=== PATIENT | male | born 1940 | race Caucasian/White ===

== ENCOUNTER 2016-12-06 14:15 | Inpatient (IN) | payer MEDICARE, BC ==
[2016-12-06] MEDS ORDERED: IBUPROFEN IV 600 MG in SODIUM CHLORIDE 0.9% 250 ML IV STA (14:21)
[2016-12-06] MEDS ORDERED: ACETAMINOPHEN TAB 500 MG TAB PO STA (14:21)
--- NOTE | 2016-12-06 14:29 | ED ---
General Adult HPI - General Source: RN notes reviewed <Daniel Jolley - Last Filed: 12/06/16 19:43> <Daniel Hanson - Last Filed: 12/06/16 21:06> - General Stated complaint: Stemi Time Seen by Provider: 12/06/16 14:15 - History of Present Illness Initial comments: This is a 76-year-old male who presents to the emergency department with the initial complaint of nausea vomiting and diarrhea and generalized weakness. EMS was called to scene when they did an EKG they noticed some ST segment elevation in the inferior leads and thought the patient might be having a heart attack in the patient is not expressing any chest pain. Patient states occasionally feels a little bit short of breath. Patient denies any episodes diaphoresis. Patient is unaware that he has a fever. Patient denies any headache patient denies numbness weakness. Patient states she has quite a bit of abdominal cramping. Patient denies any dysuria hematuria or urinary frequency. Patient states she has no other medical problems. Patient denies any recent injury or trauma. Patient's only complaint now is pain to get weaker and weaker over the last few days because of all the vomiting diarrhea. And also complains of abdominal cramping (Daniel Jolley) - Related Data Home Medications Medication Instructions Recorded Confirmed Cholecalciferol [Vitamin D3] 2,000 unit PO DAILY 01/27/16 12/06/16 [place] 1 tab PO DIRECTED 01/27/16 12/06/16 Lecithin, Soy [Lecithin] 400 mg PO DAILY 01/27/16 12/06/16 Allergies Allergy/AdvReac Type Severity Reaction Status Date / Time No Known Allergies Allergy Verified 12/06/16 14:26 Review of Systems ROS Other: All systems not noted in ROS Statement are negative. <Daniel Jolley - Last Filed: 12/06/16 19:43> ROS Other: All systems not noted in ROS Statement are negative. <Daniel Hanson - Last Filed: 12/06/16 21:06> ROS Statement: Those systems with pertinent positive or pertinent negative responses have been documented in the HPI. Past Medical History Past Medical History: Cancer, Hyperlipidemia Additional Past Medical History / Comment(s): "low BP", environmental allergies , hx skin cancer History of Any Multi-Drug Resistant Organisms: None Reported Past Surgical History: Adenoidectomy, Tonsillectomy Past Anesthesia/Blood Transfusion Reactions: Motion Sickness Past Psychological History: No Psychological Hx Reported Smoking Status: Former smoker Past Alcohol Use History: None Reported Additional Past Alcohol Use History / Comment(s): quit smoking , used pipe or cigars -"some day" smoker Past Drug Use History: None Reported - Past Family History Mother Family Medical History: Cancer Brother(s) Family Medical History: Cancer <Daniel Jolley - Last Filed: 12/06/16 19:43> General Exam <Daniel Jolley - Last Filed: 12/06/16 19:43> General appearance: alert, in no apparent distress Head exam: Present: atraumatic, normocephalic, normal inspection Eye exam: Present: normal appearance, PERRL, EOMI. Absent: scleral icterus, conjunctival injection, periorbital swelling ENT exam: Present: normal exam, mucous membranes moist Neck exam: Present: normal inspection. Absent: tenderness, meningismus, lymphadenopathy Respiratory exam: Present: normal lung sounds bilaterally. Absent: respiratory distress, wheezes, rales, rhonchi, stridor Cardiovascular Exam: Present: regular rate, normal rhythm, normal heart sounds. Absent: systolic murmur, diastolic murmur, rubs, gallop, clicks GI/Abdominal exam: Present: soft, normal bowel sounds. Absent: distended, tenderness, guarding, rebound, rigid Extremities exam: Present: normal inspection, full ROM, normal capillary refill. Absent: tenderness, pedal edema, joint swelling, calf tenderness Back exam: Present: normal inspection Neurological exam: Present: alert, oriented X3, CN II-XII intact Psychiatric exam: Present: normal affect, normal mood Skin exam: Present: warm, dry, intact, normal color. Absent: rash <Daniel Hanson - Last Filed: 12/06/16 21:06> - General Exam Comments Initial Comments: GENERAL: Patient is well-developed and well-nourished. Patient is nontoxic and well- hydrated and is in mild distress. ENT: Neck is soft and supple. No significant lymphadenopathy is noted. Oropharynx is clear. Moist mucous membranes. Neck has full range of motion without eliciting any pain. EYES: The sclera were anicteric and conjunctiva were pink and moist. Extraocular movements were intact and pupils were equal round and reactive to light. Eyelids were unremarkable. PULMONARY: Unlabored respirations. Good breath sounds bilaterally. No audible rales rhonchi or wheezing was noted. CARDIOVASCULAR: There is a regular rate and rhythm without any murmurs gallops or rubs. ABDOMEN: Soft and nontender with normal bowel sounds. No palpable organomegaly was noted. There is no palpable pulsatile mass. SKIN: Skin is clear with no lesions or rashes and otherwise unremarkable. NEUROLOGIC: Patient is alert and oriented x3. Cranial nerves II through XII are grossly intact. Motor and sensory are also intact. Normal speech, volume and content. Symmetrical smile. MUSCULOSKELETAL: Normal extremities with adequate strength and full range of motion. No lower extremity swelling or edema. No calf tenderness. LYMPHATICS: No significant lymphadenopathy is noted PSYCHIATRIC: Normal psychiatric evaluation. (Daniel Jolley) Course <Daniel Jolley - Last Filed: 12/06/16 19:43> <Daniel Hanson - Last Filed: 12/06/16 21:06> Vital Signs 12/06/16 12/06/16 12/06/16 14:22 14:33 15:20 Temperature 101.5 F H Pulse Rate 124 H 108 H 99 Respiratory 26 H 18 17 Rate Blood Pressure 93/67 97/52 95/58 O2 Sat by Pulse 92 L 98 99 Oximetry 12/06/16 12/06/16 12/06/16 16:21 17:10 19:00 Temperature 98.2 F 98.4 F Pulse Rate 98 68 71 Respiratory 18 17 17 Rate Blood Pressure 87/57 85/53 83/50 O2 Sat by Pulse 95 95 96 Oximetry 12/06/16 12/06/16 19:21 21:01 Temperature Pulse Rate 72 68 Respiratory 16 16 Rate Blood Pressure 82/50 85/60 O2 Sat by Pulse 96 96 Oximetry - Reevaluation(s) Reevaluation #1: 12/06/16 21:05 Patient is awake alert and mentating appropriately, not tachycardic, patient's blood pressure is running 90/60 lactic acid has improved from 7-0 (Daniel Hanson) Medical Decision Making - Lab Data Result diagrams: 12/06/16 14:20 12/06/16 14:20 <Daniel Jolley - Last Filed: 12/06/16 19:43> - Lab Data Result diagrams: 12/06/16 14:20 12/06/16 14:20 - Radiology Data Radiology results: report reviewed, image reviewed <Daniel Hanson - Last Filed: 12/06/16 21:06> - Medical Decision Making EKG shows sinus tachycardia 129 bpm AL interval 176 QRS 138 Q-T intervals 316 QTC is 462 patient's EKG shows a left bundle branch block which was new compared to an old EKG done 4 years ago. There is some ST segment elevation in the inferior leads this is why called Dr. Lemon and he looked at the EKG and wants to get a stat troponin which is been ordered already. Troponin was normal. Dr. Hanson will be taking over care of this patient at 7:30 (Daniel Jolley) 76 male ER for evaluation of nausea vomiting and diarrhea, patient is found to have acute cholecystitis and will be treated with antibiotics and fluid resuscitation, continued pain control and antiemetics, patient is to be admitted for further resuscitation as well as surgical evaluation (Daniel Hanson) - Lab Data Lab Results 12/06/16 12/06/16 12/06/16 Range/Units 14:20 14:20 14:20 WBC 13.0 H (3.8-10.6) k/uL RBC 5.41 (4.30-5.90) m/uL Hgb 16.5 (13.0-17.5) gm/dL Hct 47.4 (39.0-53.0) % MCV 87.7 (80.0-100.0) fL MCH 30.4 (25.0-35.0) pg MCHC 34.7 (31.0-37.0) g/dL RDW 13.8 (11.5-15.5) % Plt Count 187 (150-450) k/uL Neutrophils % 81 % Lymphocytes % 16 % Monocytes % 2 % Eosinophils % 1 % Basophils % 0 % Neutrophils # 10.5 H (1.3-7.7) k/uL Lymphocytes # 2.0 (1.0-4.8) k/uL Monocytes # 0.3 (0-1.0) k/uL Eosinophils # 0.1 (0-0.7) k/uL Basophils # 0.1 (0-0.2) k/uL PT (9.0-12.0) sec INR (<1.1) APTT (22.0-30.0) sec Sodium (137-145) mmol/L Potassium (3.5-5.1) mmol/L Chloride (98-107) mmol/L Carbon Dioxide (22-30) mmol/L Anion Gap mmol/L BUN (9-20) mg/dL Creatinine (0.66-1.25) mg/dL Est GFR (MDRD) Af Amer (>60 ml/min/1.73 sqM) Est GFR (MDRD) Non-Af (>60 ml/min/1.73 sqM) Glucose (74-99) mg/dL Plasma Lactic Acid Jose 7.2 H* (0.7-2.0) mmol/L Calcium (8.4-10.2) mg/dL Total Bilirubin (0.2-1.3) mg/dL AST (17-59) U/L ALT (21-72) U/L Alkaline Phosphatase (38-126) U/L Total Creatine Kinase 98 (55-170) U/L CK-MB (CK-2) 0.7 (0.0-2.4) ng/mL CK-MB (CK-2) Rel Index 0.7 Troponin I <0.012 (0.000-0.034) ng/mL Total Protein (6.3-8.2) g/dL Albumin (3.5-5.0) g/dL Cortisol ug/dL Urine Color Urine Appearance (Clear) Urine pH (5.0-8.0) Ur Specific [place] (1.001-1.035) Urine Protein (Negative) Urine Glucose (UA) (Negative) Urine Ketones (Negative) Urine Blood (Negative) Urine Nitrate (Negative) Urine Bilirubin (Negative) Urine Urobilinogen (<2.0) mg/dL Ur Leukocyte Esterase (Negative) Urine RBC (0-5) /hpf Urine WBC (0-5) /hpf Urine Bacteria (None) /hpf Hyaline Casts (0-2) /lpf Urine Mucus (None) /hpf Influenza Type A RNA (Not Detectd) Influenza Type B (PCR) (Not Detectd) 12/06/16 12/06/16 12/06/16 Range/Units 14:20 14:20 14:51 WBC (3.8-10.6) k/uL RBC (4.30-5.90) m/uL Hgb (13.0-17.5) gm/dL Hct (39.0-53.0) % MCV (80.0-100.0) fL MCH (25.0-35.0) pg MCHC (31.0-37.0) g/dL RDW (11.5-15.5) % Plt Count (150-450) k/uL Neutrophils % % Lymphocytes % % Monocytes % % Eosinophils % % Basophils % % Neutrophils # (1.3-7.7) k/uL Lymphocytes # (1.0-4.8) k/uL Monocytes # (0-1.0) k/uL Eosinophils # (0-0.7) k/uL Basophils # (0-0.2) k/uL PT 11.4 (9.0-12.0) sec INR 1.1 (<1.1) APTT 24.3 (22.0-30.0) sec Sodium 140 (137-145) mmol/L Potassium 5.1 (3.5-5.1) mmol/L Chloride 101 (98-107) mmol/L Carbon Dioxide 18 L (22-30) mmol/L Anion Gap 21 mmol/L BUN 18 (9-20) mg/dL Creatinine 1.10 (0.66-1.25) mg/dL Est GFR (MDRD) Af Amer >60 (>60 ml/min/1.73 sqM) Est GFR (MDRD) Non-Af >60 (>60 ml/min/1.73 sqM) Glucose 163 H (74-99) mg/dL Plasma Lactic Acid Jose (0.7-2.0) mmol/L Calcium 9.6 (8.4-10.2) mg/dL Total Bilirubin 2.4 H (0.2-1.3) mg/dL AST 41 (17-59) U/L ALT 30 (21-72) U/L Alkaline Phosphatase 78 (38-126) U/L Total Creatine Kinase (55-170) U/L CK-MB (CK-2) (0.0-2.4) ng/mL CK-MB (CK-2) Rel Index Troponin I (0.000-0.034) ng/mL Total Protein 7.4 (6.3-8.2) g/dL Albumin 4.2 (3.5-5.0) g/dL Cortisol 39 ug/dL Urine Color Urine Appearance (Clear) Urine pH (5.0-8.0) Ur Specific [place] (1.001-1.035) Urine Protein (Negative) Urine Glucose (UA) (Negative) Urine Ketones (Negative) Urine Blood (Negative) Urine Nitrate (Negative) Urine Bilirubin (Negative) Urine Urobilinogen (<2.0) mg/dL Ur Leukocyte Esterase (Negative) Urine RBC (0-5) /hpf Urine WBC (0-5) /hpf Urine Bacteria (None) /hpf Hyaline Casts (0-2) /lpf Urine Mucus (None) /hpf Influenza Type A RNA Not Detected (Not Detectd) Influenza Type B (PCR) Not Detected (Not Detectd) 12/06/16 12/06/16 12/06/16 Range/Units 16:00 17:41 17:57 WBC (3.8-10.6) k/uL RBC (4.30-5.90) m/uL Hgb (13.0-17.5) gm/dL Hct (39.0-53.0) % MCV (80.0-100.0) fL MCH (25.0-35.0) pg MCHC (31.0-37.0) g/dL RDW (11.5-15.5) % Plt Count (150-450) k/uL Neutrophils % % Lymphocytes % % Monocytes % % Eosinophils % % Basophils % % Neutrophils # (1.3-7.7) k/uL Lymphocytes # (1.0-4.8) k/uL Monocytes # (0-1.0) k/uL Eosinophils # (0-0.7) k/uL Basophils # (0-0.2) k/uL PT (9.0-12.0) sec INR (<1.1) APTT (22.0-30.0) sec Sodium (137-145) mmol/L Potassium (3.5-5.1) mmol/L Chloride (98-107) mmol/L Carbon Dioxide (22-30) mmol/L Anion Gap mmol/L BUN (9-20) mg/dL Creatinine (0.66-1.25) mg/dL Est GFR (MDRD) Af Amer (>60 ml/min/1.73 sqM) Est GFR (MDRD) Non-Af (>60 ml/min/1.73 sqM) Glucose (74-99) mg/dL Plasma Lactic Acid Jose 1.2 1.0 (0.7-2.0) mmol/L Calcium (8.4-10.2) mg/dL Total Bilirubin (0.2-1.3) mg/dL AST (17-59) U/L ALT (21-72) U/L Alkaline Phosphatase (38-126) U/L Total Creatine Kinase (55-170) U/L CK-MB (CK-2) (0.0-2.4) ng/mL CK-MB (CK-2) Rel Index Troponin I (0.000-0.034) ng/mL Total Protein (6.3-8.2) g/dL Albumin (3.5-5.0) g/dL Cortisol ug/dL Urine Color [place] Urine Appearance Clear (Clear) Urine pH 6.0 (5.0-8.0) Ur Specific [place] 1.023 (1.001-1.035) Urine Protein 1+ H (Negative) Urine Glucose (UA) Negative (Negative) Urine Ketones Trace H (Negative) Urine Blood Small H (Negative) Urine Nitrate Negative (Negative) Urine Bilirubin Negative (Negative) Urine Urobilinogen 2.0 (<2.0) mg/dL Ur Leukocyte Esterase Negative (Negative) Urine RBC 42 H (0-5) /hpf Urine WBC 3 (0-5) /hpf Urine Bacteria Rare H (None) /hpf Hyaline Casts 9 H (0-2) /lpf Urine Mucus Moderate H (None) /hpf Influenza Type A RNA (Not Detectd) Influenza Type B (PCR) (Not Detectd) Critical Care Time Critical Care Time: Yes Total Critical Care Time: 31 <Daniel Hnason - Last Filed: 12/06/16 21:06> Disposition <Daniel Jolley - Last Filed: 12/06/16 19:43> <Daniel Hanson - Last Filed: 12/06/16 21:06> Clinical Impression: Nausea & vomiting, Diarrhea, Acute cholecystitis, Sepsis Disposition: ADMITTED IP TO THIS HOSP Condition: Fair Referrals: Margarito King MD [Primary Care Provider] - 1-2 days
[2016-12-06] MEDS: SODIUM CHLORIDE 0.9% 500 ML IV SCH ×2 (14:32→16:25)
[2016-12-06 14:43] LABS: Basophils # (A) 0.1 k/uL (0-0.2); Basophils % (A) 0 %; CH 30.9; CHCM 35.5; Eosinophils # (A) 0.1 k/uL (0-0.7); Eosinophils % (A) 1 %; HCT 47.4 % (39.0-53.0); HDW 2.82; HGB 16.5 gm/dL (13.0-17.5); Luc # (Auto) 0.07; Luc % (Auto) 1; Lymphocytes % (A) 16 %; MCH 30.4 pg (25.0-35.0); MCHC 34.7 g/dL (31.0-37.0); MCV 87.7 fL (80.0-100.0); Monocytes # (A) 0.3 k/uL (0-1.0); Monocytes % (A) 2 %; Neutrophils # (A) 10.5 k/uL (1.3-7.7); Neutrophils % (A) 81 %; RBC 5.41 m/uL (4.30-5.90); RDW 13.8 % (11.5-15.5); WBC (Perox) 12.78
[2016-12-06 14:47] LABS: ALT 30 U/L (21-72); AST 41 U/L (17-59); Alkaline Phosphatase 78 U/L (38-126); Anion Gap 21 mmol/L; Blood Urea Nitrogen 18 mg/dL (9-20); Calcium 9.6 mg/dL (8.4-10.2); Carbon Dioxide 18 mmol/L (22-30); Chloride 101 mmol/L (98-107); Glucose 163 mg/dL (74-99); Non-African American GFR(MDRD) >60 (>60 ml/min/1.73 sqM); Potassium 5.1 mmol/L (3.5-5.1); Sodium 140 mmol/L (137-145); Total Bilirubin 2.4 mg/dL (0.2-1.3); Total Protein 7.4 g/dL (6.3-8.2)
--- NOTE | 2016-12-06 14:50 | XR ---
EXAMINATION TYPE: XR chest 1V portable DATE OF EXAM: 12/06/2016 2:45 PM HISTORY: Shortness of breath. COMPARISON: 07/25/10 TECHNIQUE: Single view of the chest is submitted. FINDINGS: Demonstrated are scattered senescent parenchymal change. There is no evidence for focal infiltrate. The heart is stable. Hilar and mediastinal structures are within normal limits. Degenerative changes are seen of the dorsal spine. IMPRESSION: 1. Chronic changes without evidence for acute pulmonary disease.
[2016-12-06 14:52] LABS: Creatine Kinase 98 U/L (55-170); INR 1.1 (<1.1); Partial Thromboplastin Time 24.3 sec (22.0-30.0); Prothrombin Time 11.4 sec (9.0-12.0)
[2016-12-06 15:06] LABS: Creatine Kinase MB 0.7 ng/mL (0.0-2.4); Troponin I <0.012 ng/mL (0.000-0.034)
[2016-12-06] MEDS: SODIUM CHLORIDE 0.9% 1,000 ML IV ONE ×2 (15:13→16:15)
[2016-12-06] MEDS ORDERED: SODIUM CHLORIDE 0.9% 2,000 ML IV ONE (16:14)
[2016-12-06] MEDS ORDERED: LEVOFLOXACIN 750MG-D5W PMX 750 MG in DEXTROSE/WATER 1 150ML.BAG IVPB STA (16:16)
[2016-12-06] MEDS ORDERED: ONDANSETRON 4 MG/2 ML VIAL IVP STA (16:37)
[2016-12-06] MEDS ORDERED: SODIUM CHLORIDE 0.9% 1,000 ML IV ONE (17:07)
[2016-12-06] MEDS ORDERED: SODIUM CHLORIDE 0.9% 1,000 ML IV STA ×2 (17:16→21:02)
[2016-12-06 17:17] LABS: Appearance,Urine Clear (Clear); Bacteria,Urine Rare /hpf; Bilirubin,Urine Negative (Negative); Glucose,Urine (UA) Negative (Negative); Ketones,Urine Trace (Negative); Leukocyte Esterase,Urine Negative (Negative); Mucus,Urine Moderate /hpf; Nitrite,Urine Negative (Negative); Particle Count 9634; Protein,Urine 1+ (Negative); RBC,Urine 42 /hpf (0-5); Specific Gravity,Urine 1.023 (1.001-1.035); UA Billing (MACRO vs. MICRO) MICRO; WBC,Urine 3 /hpf (0-5)
[2016-12-06] MEDS ORDERED: RX INFO: IV CONTRAST WAS GIVEN 1 EACH MISC MISCELLANE PRN (17:43)
--- NOTE | 2016-12-06 19:34 | CT ---
EXAMINATION TYPE: CT abdomen pelvis w con DATE OF EXAM: 12/06/2016 6:59 PM COMPARISON: NONE HISTORY: Upper Abdominal pain CT DLP: 1078.7 mGycm. Automated exposure control for dose reduction was used. TECHNIQUE: Helical acquisition of images was performed from the lung bases through the pelvis. CONTRAST: Performed without Oral Contrast and with IV Contrast, patient injected with 100 mL of Omnip aque 300. FINDINGS: LUNG BASES: No significant abnormality is appreciated. LIVER/GB: The gallbladder is distended and the interface of the gallbladder with the anterior pararen al space are ill-defined with edematous reticulation. These findings suggest the diagnosis of acute c holecystitis. There are no abnormal fluid or gas collections. There is no extrahepatic biliary tree d ilation. There is no intrahepatic biliary tree dilation. PANCREAS: No pancreatic ductal dilation. No significant focal abnormality is seen. SPLEEN: No significant abnormality is seen. ADRENALS: No significant abnormality is seen. KIDNEYS: No significant abnormality is seen. RETROPERITONEAL ADENOPATHY: None visualized REPRODUCTIVE ORGANS: No significant abnormality is seen URINARY BLADDER: No significant abnormality is seen. PELVIC ADENOPATHY: None visualized. OSSEOUS STRUCTURES: No significant abnormality is seen. BOWEL: No significant abnormality is seen. IMPRESSION: CT FINDINGS SUGGESTIVE ACUTE CHOLECYSTITIS. RESULTS DISCUSSED.
[2016-12-06] MEDS ORDERED: AMPICILLIN-SULBACTAM 3 GM in SODIUM CHLORIDE 0.9% 100 ML IVPB STA (20:24)
[2016-12-06] MEDS ORDERED: SODIUM CHLORIDE 0.9% 500 ML IV STA (21:02)
[2016-12-06] MEDS ORDERED: HYDROmorphone 1 MG/ML 1 ML SYRINGE IVP PRN (21:02)
[2016-12-06] MEDS ORDERED: PANTOPRAZOLE 40 MG/10 ML VIAL IVP STA (21:02)
[2016-12-06] MEDS ORDERED: ACETAMINOPHEN IV (For NPO) 1,000 MG in EMPTY BAG 1 BAG IVPB STA (21:03)
--- NOTE | 2016-12-06 21:12 | US ---
EXAMINATION TYPE: US gallbladder DATE OF EXAM: 12/06/2016 8:30 PM COMPARISON: CT one hour ago. CLINICAL HISTORY: Pain. Difficult/limited exam due to overlying bowel gas EXAM MEASUREMENTS: Liver Length: 14.0 cm cm Gallbladder Wall: 1.2 cm CBD: 0.4 cm Right Kidney: 10.1 x 4.7 x 4.9 cm FINDINGS: Pancreas: Obscured by bowel gas Liver: Limited visualization due to bowel gas, visualized portions show no mass Gallbladder: Thickened wall with pericholecystic fluid present. Multiple shadowing stones area visua lized Evidence for sonographic Matt's sign: No CBD: wnl as visualized, distal portion obscured by bowel gas Right Kidney: Anechoic area visualized at the upper pole, probable cyst measuring 1.5 x 1.5 x 1.8 cm IMPRESSION: SONOGRAPHIC FINDINGS CONSISTENT WITH ACUTE CHOLECYSTITIS. There is no common bile duct/common hepatic duct dilation and no intrahepatic ductal dilation.
[2016-12-06 22:38] LABS: Glucose,Whole Blood 94 mg/dL (75-99)
[2016-12-06 23:16] VITALS: BMI 28.3
[2016-12-07 01:10] LABS: Creatine Kinase MB 2.6 ng/mL (0.0-2.4); Troponin I 0.15 ng/mL (0.000-0.034)
[2016-12-07] MEDS: SODIUM CHLORIDE 0.9% 500 ML IV SCH ×3 (01:16→04:19)
[2016-12-07] MEDS: ONDANSETRON 4 MG/2 ML VIAL IVP PRN ×2 (03:59→23:08)
[2016-12-07 05:03] LABS: Basophils % (A) 0 %; CH 30.6; Eosinophils % (A) 0 %; HCT 40.1 % (39.0-53.0); HDW 2.89; Luc # (Auto) 0.08; Luc % (Auto) 1; Lymphocytes # (A) 0.6 k/uL (1.0-4.8); Lymphocytes % (A) 6 %; MCHC 33.1 g/dL (31.0-37.0); MCV 90.6 fL (80.0-100.0); Monocytes # (A) 0.7 k/uL (0-1.0); Monocytes % (A) 7 %; Neutrophils # (A) 8.4 k/uL (1.3-7.7); Neutrophils % (A) 86 %; RBC 4.43 m/uL (4.30-5.90); RDW 13.9 % (11.5-15.5); WBC 9.8 k/uL (3.8-10.6); WBC (Perox) 10.53
[2016-12-07 05:16] LABS: Anion Gap 8 mmol/L; Blood Urea Nitrogen 16 mg/dL (9-20); Calcium 7.5 mg/dL (8.4-10.2); Carbon Dioxide 22 mmol/L (22-30); Chloride 108 mmol/L (98-107); Glucose 82 mg/dL (74-99); Magnesium 1.5 mg/dL (1.6-2.3); Non-African American GFR(MDRD) >60 (>60 ml/min/1.73 sqM); Phosphorous 2.8 mg/dL (2.5-4.5); Potassium 4.2 mmol/L (3.5-5.1); Sodium 138 mmol/L (137-145)
[2016-12-07 05:18] LABS: HGB 13.3 gm/dL (13.0-17.5)
[2016-12-07] MEDS: ACETAMINOPHEN IV (For NPO) 1,000 MG in EMPTY BAG 1 BAG IVPB SCH ×4 (05:22→23:12)
[2016-12-07 06:04] LABS: Creatine Kinase MB 2.8 ng/mL (0.0-2.4); Troponin I 0.125 ng/mL (0.000-0.034)
[2016-12-07] MEDS ORDERED: Magnesium Replacement Protocol 1 EACH MISC MISCELLANE PRN (06:15)
[2016-12-07] MEDS: MAGNESIUM SULFATE-D5W PMX 1 GM in DEXTROSE/WATER 1 100ML.BAG IVPB SCH ×2 (07:00→07:52)
--- NOTE | 2016-12-07 07:34 | XR ---
EXAMINATION TYPE: XR chest 1V DATE OF EXAM: 12/07/2016 6:29 AM COMPARISON: 12/06/2016 HISTORY: 76-year-old male with fever TECHNIQUE: Single frontal view of the chest is obtained. FINDINGS: Heart is upper limits of normal in size. Mild elongation of the thoracic aorta is similar. Some stran dy atelectasis in the lower lungs. There is some patchy opacity at the peripheral left base. No pleur al effusion. IMPRESSION: Some patchy peripheral left basilar opacity could represent atelectasis or early infiltrate. Follow-u p may be helpful.
[2016-12-07] MEDS: ENOXAPARIN 40 MG/0.4 ML SYRINGE SQ SCH (07:52)
[2016-12-07] MEDS: AMPICILLIN-SULBACTAM 3 GM in SODIUM CHLORIDE 0.9% 100 ML IVPB SCH ×3 (07:52→23:12)
[2016-12-07] MEDS: PANTOPRAZOLE 40 MG/10 ML VIAL IVP SCH (07:53)
--- NOTE | 2016-12-07 08:25 | P.GSCN ---
History of Present Illness Consult date: 12/07/16 Reason for Consult: Right upper quadrant pain History of present illness: This a 76-year-old male who presented to the emergency room with complaints of right upper quadrant pain. The patient states the pain was significant yesterday. It is improved this morning. Patient had CAT scan performed shows evidence of acute cholecystitis. Past Medical History Past Medical History: Cancer, Hyperlipidemia Additional Past Medical History / Comment(s): "low BP", environmental allergies , hx skin cancer History of Any Multi-Drug Resistant Organisms: None Reported Past Surgical History: Adenoidectomy, Tonsillectomy Past Anesthesia/Blood Transfusion Reactions: No Reported Reaction Past Psychological History: No Psychological Hx Reported Smoking Status: Former smoker Past Alcohol Use History: None Reported Additional Past Alcohol Use History / Comment(s): quit smoking 1959's, used pipe or cigars -"some day" smoker Past Drug Use History: None Reported - Past Family History Mother Family Medical History: Cancer Brother(s) Family Medical History: Cancer Medications and Allergies Home Medications Medication Instructions Recorded Confirmed Type Cholecalciferol [Vitamin D3] 2,000 unit PO DAILY 01/27/16 12/06/16 History [place] 1 tab PO DIRECTED 01/27/16 12/06/16 History Lecithin, Soy [Lecithin] 400 mg PO DAILY 01/27/16 12/06/16 History Allergies Allergy/AdvReac Type Severity Reaction Status Date / Time No Known Allergies Allergy Verified 12/06/16 23:31 Surgical - Exam Vital Signs Temp Pulse Resp BP Pulse Ox 101.5 F H 124 H 26 H 93/67 92 L 12/06/16 14:22 12/06/16 14:22 12/06/16 14:22 12/06/16 14:22 12/06/16 14:22 - General well developed, no distress - Eyes PERRL - ENT normal pinna - Neck no masses - Respiratory normal expansion - Cardiovascular Rhythm: regular - Abdomen Mild tenderness right upper quadrant. No evidence of rebound or guarding. Abdomen: soft Results - Labs 12/07/16 04:38 12/07/16 04:38 Abnormal Lab Results - Last 24 Hours (Table) 12/06/16 12/07/16 12/07/16 Range/Units 23:47 04:38 04:38 Plt Count 100 L (150-450) k/uL Neutrophils # 8.4 H (1.3-7.7) k/uL Lymphocytes # 0.6 L (1.0-4.8) k/uL Chloride (98-107) mmol/L Calcium (8.4-10.2) mg/dL Magnesium (1.6-2.3) mg/dL Total Creatine Kinase 188 H (55-170) U/L CK-MB (CK-2) 2.6 H* 2.8 H* (0.0-2.4) ng/mL Troponin I 0.150 H* 0.125 H* (0.000-0.034) ng/mL 12/07/16 Range/Units 04:38 Plt Count (150-450) k/uL Neutrophils # (1.3-7.7) k/uL Lymphocytes # (1.0-4.8) k/uL Chloride 108 H (98-107) mmol/L Calcium 7.5 L (8.4-10.2) mg/dL Magnesium 1.5 L (1.6-2.3) mg/dL Total Creatine Kinase (55-170) U/L CK-MB (CK-2) (0.0-2.4) ng/mL Troponin I (0.000-0.034) ng/mL Diabetes panel 12/07/16 Range/Units 04:38 Sodium 138 (137-145) mmol/L Potassium 4.2 (3.5-5.1) mmol/L Chloride 108 H (98-107) mmol/L Carbon Dioxide 22 (22-30) mmol/L BUN 16 (9-20) mg/dL Creatinine 0.90 (0.66-1.25) mg/dL Glucose 82 (74-99) mg/dL Calcium 7.5 L (8.4-10.2) mg/dL Calcium panel 12/07/16 Range/Units 04:38 Calcium 7.5 L (8.4-10.2) mg/dL Phosphorus 2.8 (2.5-4.5) mg/dL Pituitary panel 12/07/16 Range/Units 04:38 Sodium 138 (137-145) mmol/L Potassium 4.2 (3.5-5.1) mmol/L Chloride 108 H (98-107) mmol/L Carbon Dioxide 22 (22-30) mmol/L BUN 16 (9-20) mg/dL Creatinine 0.90 (0.66-1.25) mg/dL Glucose 82 (74-99) mg/dL Calcium 7.5 L (8.4-10.2) mg/dL Adrenal panel 12/07/16 Range/Units 04:38 Sodium 138 (137-145) mmol/L Potassium 4.2 (3.5-5.1) mmol/L Chloride 108 H (98-107) mmol/L Carbon Dioxide 22 (22-30) mmol/L BUN 16 (9-20) mg/dL Creatinine 0.90 (0.66-1.25) mg/dL Glucose 82 (74-99) mg/dL Calcium 7.5 L (8.4-10.2) mg/dL - Imaging Additional studies: Ultrasound gallbladder shows thickened gallbladder wall with multiple gallstones. Assessment and Plan Plan: Acute cholecystitis. Patient will undergo laparoscopic cholecystectomy today.
--- NOTE | 2016-12-07 10:14 | P.CNPUL ---
History of Present Illness Consult date: 12/07/16 Requesting physician: Luisa Fletcher Reason for consult: other (Critical care management.) Chief complaint: Abdominal pain, nausea, vomiting History of present illness: This is a very pleasant 76-year-old gentleman who follows with Dr. King as his primary care physician. He has a history of hyperlipidemia, skin cancer, remote history of smoking however quit in the . He presented here yesterday after several days of nausea vomiting abdominal cramping. He was also having issues with diarrhea. His lactic acid did increase from 1.0-7.2 yesterday. A computed tomography scan of the abdomen suggested acute cholecystitis, ultrasound consistent with the same. The plan is to undergo laparoscopic cholecystectomy with Dr. Leon today. He is seen in consultation in the intensive care unit. He is awake and alert in no acute distress. His abdominal pain has subsided today as compared to yesterday. He' s been afebrile. No significant leukocytosis. He is maintaining O2 saturations in the low 90s on 2 L/m per nasal cannula. His chest x-ray did reveal some left basilar atelectasis otherwise clear. He has remained hemodynamically stable. Not on any pressors at this point. He has a 0.9 normal saline at 100 mL's per hour. He is currently receiving IV Unasyn. Review of Systems 14 point review of system was conducted. All negative other than as mentioned in the HPI. Past Medical History Past Medical History: Cancer, Hyperlipidemia Additional Past Medical History / Comment(s): "low BP", environmental allergies , hx skin cancer History of Any Multi-Drug Resistant Organisms: None Reported Past Surgical History: Adenoidectomy, Tonsillectomy Past Anesthesia/Blood Transfusion Reactions: No Reported Reaction Past Psychological History: No Psychological Hx Reported Smoking Status: Former smoker Past Alcohol Use History: None Reported Additional Past Alcohol Use History / Comment(s): quit smoking 1959's, used pipe or cigars -"some day" smoker Past Drug Use History: None Reported - Past Family History Mother Family Medical History: Cancer Brother(s) Family Medical History: Cancer Medications and Allergies Home Medications Medication Instructions Recorded Confirmed Type Cholecalciferol [Vitamin D3] 2,000 unit PO DAILY 01/27/16 12/06/16 History [place] 1 tab PO DIRECTED 01/27/16 12/06/16 History Lecithin, Soy [Lecithin] 400 mg PO DAILY 01/27/16 12/06/16 History Allergies Allergy/AdvReac Type Severity Reaction Status Date / Time No Known Allergies Allergy Verified 12/06/16 23:31 Physical Exam Vitals: Vital Signs Temp Pulse Resp BP Pulse Ox 12/07/16 09:30 70 17 99/58 92 L 12/07/16 09:00 81 17 99/49 79 L 12/07/16 08:30 78 17 90/57 92 L 12/07/16 08:00 98.9 F 93 14 102/60 95 12/07/16 07:53 91 L 12/07/16 07:30 96 18 94/55 95 12/07/16 07:00 96 18 92/54 94 L 12/07/16 06:30 88 19 91/68 94 L 12/07/16 06:00 101 H 18 98/53 94 L 12/07/16 05:30 108 H 22 132/77 93 L 12/07/16 05:00 81 18 128/63 98 12/07/16 04:30 78 22 102/59 96 12/07/16 04:00 81 25 H 116/57 96 12/07/16 03:30 83 19 104/60 97 12/07/16 03:00 74 19 91/53 96 12/07/16 02:30 78 18 97/53 95 12/07/16 02:00 78 16 90/52 94 L 12/07/16 01:30 77 14 103/62 97 12/07/16 01:00 77 17 109/64 100 12/07/16 00:30 66 20 102/64 98 12/07/16 00:00 98.1 F 67 20 87/61 98 12/06/16 23:30 69 15 97/62 98 12/06/16 23:00 97.7 F 65 20 91/60 98 12/06/16 22:37 67 12/06/16 21:20 67 18 91/53 96 Intake and Output 12/06/16 12/07/16 12/07/16 22:59 06:59 14:59 Intake Total 800 600 Output Total 720 120 Balance 80 480 Intake: IV 800 600 ACETAMINOPHEN IV (For NPO 100 ) 1,000 mg In Empty Bag 1 bag @ 400 mls/hr IVPB ONCE [facility] Rx#:[id number] Magnesium Sulfate-D5w Pmx 200 1 gm In Dextrose/Water 1 100ml.bag @ 100 mls/hr IVPB Q1H [facility] Rx#: [id number] Sodium Chloride 0.9% 1, 800 300 000 ml @ 100 mls/hr IV . Q10H [facility] Rx#:[id number] Output: Urine 720 120 Other: Voiding Method Indwelling Catheter Indwelling Catheter Weight 97.6 kg 97.6 kg GENERAL EXAM: Alert, active, in no apparent distress. HEAD: Normocephalic. EYES: Normal reaction of pupils, equal size. NOSE: Clear with pink turbinates. THROAT: No erythema or exudates. NECK: No masses, no JVD. CHEST: No chest wall deformity. LUNGS: Equal air entry with no crackles, wheeze, rhonchi or dullness. CVS: S1 and S2 normal with no audible murmurs, regular rhythm. ABDOMEN: Slightly distended, tender to palpation in the right upper quadrant, normal bowel sounds, no guarding or rigidity. SPINE: No scoliosis or deformity SKIN: No rashes CENTRAL NERVOUS SYSTEM: No focal deficits, tone is normal in all 4 extremities. Extremities: There is no significant peripheral edema. No clubbing, no cyanosis. Peripheral pulses are intact. Results - Laboratory Findings CBC and BMP: 12/07/16 04:38 12/07/16 04:38 PT/INR, D-dimer PT 11.4 sec (9.0-12.0) 12/06/16 14:20 INR 1.1 (<1.1) 12/06/16 14:20 Abnormal lab findings: Abnormal Labs 12/06/16 12/07/16 12/07/16 23:47 04:38 04:38 Plt Count 100 L Neutrophils # 8.4 H Lymphocytes # 0.6 L Chloride Calcium Magnesium Total Creatine Kinase 188 H CK-MB (CK-2) 2.6 H* 2.8 H* Troponin I 0.150 H* 0.125 H* 12/07/16 04:38 Plt Count Neutrophils # Lymphocytes # Chloride 108 H Calcium 7.5 L Magnesium 1.5 L Total Creatine Kinase CK-MB (CK-2) Troponin I - Diagnostic Findings Chest x-ray: image reviewed (Atelectasis of the left lung base.) Assessment and Plan Plan: Impression: #1 Acute abdominal pain secondary to acute cholecystitis. #2 Lactic acidosis secondary to acute cholecystitis. #3 Mild troponin leak. #4 Hyperlipidemia. Plan: The patient was seen and evaluated by Dr. Ramos. His chest x-ray and labs were reviewed. The plan is for laparoscopic cholecystectomy this morning. Presently , he remains hemodynamically stable. We'll continue to monitor him in the intensive care unit. He remains on antibiotics in the form of Unasyn. He is on Lovenox for DVT prophylaxis. He is on Protonix for GI prophylaxis. We'll continue to follow make further recommendations based on his clinical status. Time with Patient: Greater than 30
--- NOTE | 2016-12-07 11:17 | P.HPIM ---
History of Present Illness H&P Date: 12/07/16 Chief Complaint: Abdominal discomfort This is a 76-year-old male with a known past medical history of hyperlipidemia and skin cancer. Patient presented to the emergency room with complaints of vomiting and diarrhea. As well as he is having some right upper quadrant abdominal pain. Symptoms started 3 days ago. Patient continuing into the emergency room via EMS for further evaluation and treatment. He is found to have a temp of 101.5 heart rate of 124 he was hypotensive systolic blood pressure was in the 90s. White count elevated at 13. Also lactic acid was elevated at 7.2 and has come down to 1. Computed tomography scan of the abdomen and pelvis and abdominal ultrasound had shown evidence of an acute cholecystitis. He was admitted to the ICU and surgery was consulted. There is planning to proceed with cholecystectomy later today. Patient was noted have some EKG changes per EMS. On admission his EKG had shown sinus tachycardia with a heart rate of 129. He did some changes in his troponins his first troponin was negative the second to her slightly elevated at 0.150 and 0.125. Cardiology has been consulted and they are notified. Patient denies any chest pain or shortness of breath. Patient has been given IV fluids antibiotics in the form of Unasyn. Chest x-rays initially was negative. Repeat chest x-ray did show atelectasis versus early infiltrate. Patient denies any significant cough. Patient does admit to having some chills and sweats. He's had no further episodes of vomiting or diarrhea. Denies any burning with urination. Denies any chest pain or shortness of breath. Pulmonary service is following for ICU management. Review of Systems Please refer to HPI otherwise unremarkable Past Medical History Past Medical History: Cancer, Hyperlipidemia Additional Past Medical History / Comment(s): "low BP", environmental allergies , hx skin cancer History of Any Multi-Drug Resistant Organisms: None Reported Past Surgical History: Adenoidectomy, Tonsillectomy Past Anesthesia/Blood Transfusion Reactions: No Reported Reaction Past Psychological History: No Psychological Hx Reported Smoking Status: Former smoker Past Alcohol Use History: None Reported Additional Past Alcohol Use History / Comment(s): quit smoking 1959's, used pipe or cigars -"some day" smoker Past Drug Use History: None Reported - Past Family History Mother Family Medical History: Cancer Brother(s) Family Medical History: Cancer Medications and Allergies Home Medications Medication Instructions Recorded Confirmed Type Cholecalciferol [Vitamin D3] 2,000 unit PO DAILY 01/27/16 12/06/16 History [place] 1 tab PO DIRECTED 01/27/16 12/06/16 History Lecithin, Soy [Lecithin] 400 mg PO DAILY 01/27/16 12/06/16 History Allergies Allergy/AdvReac Type Severity Reaction Status Date / Time No Known Allergies Allergy Verified 12/06/16 23:31 Physical Exam Vitals: Vital Signs Temp Pulse Resp BP Pulse Ox 12/07/16 09:30 70 17 99/58 92 L 12/07/16 09:00 81 17 99/49 79 L 12/07/16 08:30 78 17 90/57 92 L 12/07/16 08:00 98.9 F 93 14 102/60 95 12/07/16 07:53 91 L 12/07/16 07:30 96 18 94/55 95 12/07/16 07:00 96 18 92/54 94 L 12/07/16 06:30 88 19 91/68 94 L 12/07/16 06:00 101 H 18 98/53 94 L 12/07/16 05:30 108 H 22 132/77 93 L 12/07/16 05:00 81 18 128/63 98 12/07/16 04:30 78 22 102/59 96 12/07/16 04:00 81 25 H 116/57 96 12/07/16 03:30 83 19 104/60 97 12/07/16 03:00 74 19 91/53 96 12/07/16 02:30 78 18 97/53 95 12/07/16 02:00 78 16 90/52 94 L 12/07/16 01:30 77 14 103/62 97 12/07/16 01:00 77 17 109/64 100 12/07/16 00:30 66 20 102/64 98 12/07/16 00:00 98.1 F 67 20 87/61 98 12/06/16 23:30 69 15 97/62 98 12/06/16 23:00 97.7 F 65 20 91/60 98 12/06/16 22:37 67 12/06/16 21:20 67 18 91/53 96 Intake and Output 12/06/16 12/07/16 12/07/16 22:59 06:59 14:59 Intake Total 800 600 Output Total 720 120 Balance 80 480 Intake: IV 800 600 ACETAMINOPHEN IV (For NPO 100 ) 1,000 mg In Empty Bag 1 bag @ 400 mls/hr IVPB ONCE STA Rx#:[id number] Magnesium Sulfate-D5w Pmx 200 1 gm In Dextrose/Water 1 100ml.bag @ 100 mls/hr IVPB Q1H [facility] Rx#: [id number] Sodium Chloride 0.9% 1, 800 300 000 ml @ 100 mls/hr IV . Q10H [facility] Rx#:[id number] Output: Urine 720 120 Other: Voiding Method Indwelling Catheter Indwelling Catheter Weight 97.6 kg 97.6 kg Head normocephalic Neck supple Lungs clear to auscultation bilaterally no wheezing or crackles Heart regular rate and rhythm S1-S2, no rub or gallop Abdomen is soft nondistended positive bowel sounds tenderness in the right upper quadrant Extremities no edema Neuro alert and orientated to 3 Results CBC & Chem 7: 12/07/16 04:38 12/07/16 04:38 Labs: Abnormal Lab Results - Last 24 Hours (Table) 12/06/16 12/07/16 12/07/16 Range/Units 23:47 04:38 04:38 Plt Count 100 L (150-450) k/uL Neutrophils # 8.4 H (1.3-7.7) k/uL Lymphocytes # 0.6 L (1.0-4.8) k/uL Chloride (98-107) mmol/L Calcium (8.4-10.2) mg/dL Magnesium (1.6-2.3) mg/dL Total Creatine Kinase 188 H (55-170) U/L CK-MB (CK-2) 2.6 H* 2.8 H* (0.0-2.4) ng/mL Troponin I 0.150 H* 0.125 H* (0.000-0.034) ng/mL 12/07/16 Range/Units 04:38 Plt Count (150-450) k/uL Neutrophils # (1.3-7.7) k/uL Lymphocytes # (1.0-4.8) k/uL Chloride 108 H (98-107) mmol/L Calcium 7.5 L (8.4-10.2) mg/dL Magnesium 1.5 L (1.6-2.3) mg/dL Total Creatine Kinase (55-170) U/L CK-MB (CK-2) (0.0-2.4) ng/mL Troponin I (0.000-0.034) ng/mL Thrombosis Risk Factor Assmnt - Choose All That Apply Any of the Below Risk Factors Present?: Yes Each Factor Represents 1 point: Sepsis (< 1month) Other Risk Factors: Yes Each Risk Factor Represents 3 Points: Age 75 years or older Other congenital or acquired thrombophilia - If yes, enter type in comment: No Thrombosis Risk Factor Assessment Total Risk Factor Score: 4 Thrombosis Risk Factor Assessment Level: Moderate Risk Assessment and Plan Plan: 1. Right upper quadrant abdominal pain with evidence of acute cholecystitis noted on computed tomography scan of the abdomen as well as ultrasound. Patient has been seen by surgical service the planning proceed with a Cholecystectomy this afternoon. Continue with current antibiotics. 2. Sepsis present on admission secondary to the acute cholecystitis. Patient had leukocytosis, tachycardia and elevated lactic acid level of 7.2. Continue with antibiotics and IV fluids. Awaiting blood culture and urine culture 3. Elevated troponins no evidence of chest pain. Patient will be evaluated by cardiology 4. Hypotension secondary to sepsis improving with IV fluids. Continue to monitor. 5. History of being a former smoker 6. Hyperlipidemia GI prophylaxis Protonix and DVT prophylaxis Lovenox Time with Patient: Greater than 30 (Greater than 50% of the total time spent in counseling and coordination of care.I performed an examination of the patient and discussed their management with the physician Special Education Curriculum Specialist. I have reviewed the Physician Special Education Curriculum Specialist's notes and agree with the documented findings and plan of care)
--- NOTE | 2016-12-07 13:30 | P.PN ---
Progress Note - Text Impression Borderline troponins in the setting of an acute abdomen with elevated lactic acid and hypertension History of dyslipidemia Rate related left bundle branch block during sinus tachycardia , narrow QRS during normal heart rates Remote history of smoking Suggest Proceed with abdominal surgery Will follow postoperatively and we'll start statins See full consult that is dictated separately
[2016-12-07] MEDS ORDERED: ROCURONIUM BROMIDE 10 MG/ML 10 ML VIAL IV ONE (13:48)
[2016-12-07] MEDS ORDERED: LIDOCAINE 1% INJ 10MG/ML (20 ML MDV) ONE (13:48)
[2016-12-07] MEDS ORDERED: SUCCINYLCHOLINE CHLORIDE 100 MG/5 ML SYR IV ONE (13:48)
[2016-12-07] MEDS ORDERED: HYDROmorphone (PF) 1 MG/ML ONE (13:48)
[2016-12-07] MEDS ORDERED: NEOSTIGMINE 1 MG/ML 10 ML VIAL ONE (13:48)
[2016-12-07] MEDS ORDERED: GLYCOPYRROLATE 0.2 MG/ML 2 ML VIAL ONE (13:48)
[2016-12-07] MEDS ORDERED: fentaNYL (PF) 50 MCG/ML 2 ML AMP ONE (13:48)
[2016-12-07] MEDS ORDERED: IV FLUID CONTINUATION 1,000 ML IV ONE (13:48)
[2016-12-07] MEDS ORDERED: MIDAZOLAM 2 MG/2 ML VIAL ONE (13:48)
[2016-12-07] MEDS ORDERED: ETOMIDATE 2 MG/ML 10 ML VIAL ONE (13:48)
--- NOTE | 2016-12-07 13:51 | CONS ---
DATE OF CONSULTATION: Kevin Garcia, a 76-year-old male patient, who initially presented with abdominal discomfort. Cardiology was consulted on an account of an abnormal ECG and borderline troponins. He presented to the emergency room with vomiting and diarrhea and had severe abdominal discomfort. He has cholecystitis and is awaiting surgery today. His lactic acid was elevated and now has improved to 1.0. He was febrile at that time. The 12-lead ECG showed sinus tachycardia with a left bundle branch block pattern with a left axis. His troponins are 0.125 and 0.12. Electrolytes are normal. Hemoglobin is normal. White count is normal. He has past history of dyslipidemia, skin cancer and environmental allergies. His past surgical history is tonsillectomy, adenoidectomy. SOCIAL HISTORY: He is a former smoker. He quit smoking in 1960s. Family history of cancer. Medications at home include and vitamin D, [place] and Lecithin. No known drug allergies. REVIEW OF SYSTEMS: He denies fever, chills. Abdominal discomfort, nausea, vomiting, diarrhea. No hematuria, dysuria. No strokes or seizures. No skin lesions. He had a vague discomfort in the chest and some heartburn. On examination at this time, his blood pressure is 99/59 mmHg, respirations are normal, pulse rate is in the 70s. He is afebrile at 98.2 degrees Fahrenheit. Head and neck examination is normal. Heart sounds S1 and S2 are normal. Lungs are clear on auscultation. Abdomen is tender. Extremities are warm. No edema. IMPRESSION: 1. Patient admitted with acute abdomen, likely acute cholecystitis, awaiting surgery. 2. Rate-related left bundle branch block, ( ) his heart rates are normal. At this time, his QRS is narrow. He looks very comfortable. 3. History of dyslipidemia. 4. Past history of smoking. SUGGEST: From a cardiac standpoint, the patient may proceed with surgery at this time. We will watch him postoperatively and thereafter I will start him on some statins. Further cardiac workup as an outpatient. This gentleman has an acute abdomen and this will be addressed today by the surgeons. His troponins are borderline. He was hypertensive and his lactic acid was high.
[2016-12-07] MEDS ORDERED: BUPIVACAIN-EPI 0.25%-1:200,000 30 ML VIAL SQ ONE (14:22)
[2016-12-07] MEDS ORDERED: NALOXONE 0.4 MG/ML 1 ML VIAL IV PRN (15:03)
--- NOTE | 2016-12-07 15:03 | P.OP ---
Date of Procedure: 12/07/16 Preoperative Diagnosis: Acute cholecystitis Postoperative Diagnosis: Acute gangrenous cholecystitis Cholelithiasis Procedure(s) Performed: Laparoscopic cholecystectomy Anesthesia: YURI Surgeon: Rikki Leon Estimated Blood Loss (ml): 20 Pathology: other (Gallbladder) Condition: stable Disposition: PACU Description of Procedure: The patient was placed on the operating table. The patient received a general endotracheal tube anesthesia. The patients abdomen was prepped and draped in the usual sterile fashion. Through an infraumbilical stab incision, the fascia of the anterior abdominal wall was grasped with a pair of Kochers and then the Veress needle was placed in the peritoneal cavity. Position of the Veress needle was confirmed with positive drop test. The abdomen was then insufflated. After adequate insufflation, the 10 mm trocar was placed in the peritoneal cavity. Following this the laparoscope was placed in the peritoneal cavity. The patient was placed in the head-up, right side up position and then a 5 mm trocar was placed in the right lateral and right subcostal position under direct visualization. A 8 mm trocar was placed in the epigastric position. The gallbladder appeared to be quite inflamed. There is evidence of early necrosis. The gallbladder was aspirated The gallbladder was grasped in the fundus and infundibulum. Traction on the gallbladder was placed in the lateral and the cephalad positions. The triangle of Calot was visualized.. The cystic duct was bluntly dissected until the union of the cystic duct and common bile duct was seen. The cystic duct was then divided and sealed with the Harmonic scissors. A PDS Endoloop was then placed throughout the cystic duct stump. The cystic artery divided and sealed with the Harmonic scissors. The gallbladder was then removed from the liver bed using Harmonic scissors. The gallbladder was then extracted through the epigastric port site. Operative field was checked for any bleeding spots and Harmonic scissors was used to coagulate the liver bed. The abdomen was irrigated. The trocars were removed. The skin was closed using interrupted 3- 0 Vicryl suture. Dermabond dressing were applied. The patient tolerated the procedure well.
[2016-12-07] MEDS ORDERED: LEVOFLOXACIN 750MG-D5W PMX 750 MG in DEXTROSE/WATER 1 150ML.BAG IVPB SCH (16:00)
[2016-12-07] MEDS: LACTATED RINGERS 1,000 ML IV ONE ×2 (16:41→18:50)
[2016-12-07] MEDS: NALOXONE 4 MG in SODIUM CHLORIDE 0.9% 100 ML IV SCH (17:57)
[2016-12-07] MEDS: HYDROmorphone 1 MG/ML 1 ML SYRINGE IVP PRN (23:30)
[2016-12-07 23:42] LABS: Anion Gap 11 mmol/L; Blood Urea Nitrogen 20 mg/dL (9-20); Calcium 7.1 mg/dL (8.4-10.2); Carbon Dioxide 18 mmol/L (22-30); Chloride 111 mmol/L (98-107); Glucose 80 mg/dL (74-99); Magnesium 2.1 mg/dL (1.6-2.3); Non-African American GFR(MDRD) >60 (>60 ml/min/1.73 sqM); Potassium 4.2 mmol/L (3.5-5.1); Sodium 140 mmol/L (137-145)
[2016-12-08] MEDS: HYDROmorphone 1 MG/ML 1 ML SYRINGE IVP PRN ×3 (01:48→16:12)
[2016-12-08] MEDS: NALOXONE 4 MG in SODIUM CHLORIDE 0.9% 100 ML IV SCH ×2 (02:07→03:16)
[2016-12-08 05:06] LABS: Basophils % (A) 0 %; CH 30.3; CHCM 33.6; Eosinophils % (A) 0 %; HCT 36.8 % (39.0-53.0); HDW 3.13; HGB 12.3 gm/dL (13.0-17.5); Luc % (Auto) 1; Lymphocytes # (A) 0.5 k/uL (1.0-4.8); Lymphocytes % (A) 7 %; MCH 30.5 pg (25.0-35.0); MCHC 33.5 g/dL (31.0-37.0); MCV 90.9 fL (80.0-100.0); Mean Platelet Volume 7.9; Monocytes # (A) 0.4 k/uL (0-1.0); Monocytes % (A) 5 %; Neutrophils # (A) 7.1 k/uL (1.3-7.7); Neutrophils % (A) 87 %; RBC 4.05 m/uL (4.30-5.90); RDW 14.3 % (11.5-15.5); WBC 8.2 k/uL (3.8-10.6); WBC (Perox) 8.39
[2016-12-08 05:16] LABS: Anion Gap 8 mmol/L; Blood Urea Nitrogen 20 mg/dL (9-20); Calcium 7.1 mg/dL (8.4-10.2); Carbon Dioxide 21 mmol/L (22-30); Chloride 110 mmol/L (98-107); Glucose 81 mg/dL (74-99); Magnesium 2.1 mg/dL (1.6-2.3); Non-African American GFR(MDRD) >60 (>60 ml/min/1.73 sqM); Phosphorous 3.6 mg/dL (2.5-4.5); Potassium 4.3 mmol/L (3.5-5.1); Sodium 139 mmol/L (137-145)
--- NOTE | 2016-12-08 07:29 | XR ---
EXAMINATION TYPE: XR chest 1V DATE OF EXAM: 12/08/2016 6:30 AM COMPARISON: 12/07/2016 HISTORY: Sepsis TECHNIQUE: Single frontal view of the chest is obtained. FINDINGS: Subsegmental changes are seen at the right lung base and left lung base. There is no pleur al effusion or pneumothorax. No interstitial edema. Cardiomegaly stable. Mild prominence of the aorta also stable correlate for aneurysm. IMPRESSION: 1. There is stable bilateral areas of subsegmental consolidation. Does appear to be no significant in terval change. Atelectasis versus early infiltrate.
--- NOTE | 2016-12-08 10:06 | P.PN ---
Progress Note - Text Patient is doing well post-laparoscopic cholecystectomy for acute cholecystitis. He's awake alert and stable. Temperature is normal. Vitals are stable. Urine output is improving. Abdomen is soft usual postoperative tenderness. Trochars sites fine without any complication. Impression stable postoperative course. Recommendation may be transferred to the surgical floor from a surgical standpoint. Advance diet.
[2016-12-08] MEDS: AMPICILLIN-SULBACTAM 3 GM in SODIUM CHLORIDE 0.9% 100 ML IVPB SCH ×2 (10:34→16:18)
[2016-12-08] MEDS: ENOXAPARIN 40 MG/0.4 ML SYRINGE SQ SCH (10:34)
[2016-12-08] MEDS: PANTOPRAZOLE 40 MG/10 ML VIAL IVP SCH (10:34)
--- NOTE | 2016-12-08 11:24 | P.PN ---
Subjective Principal diagnosis: Acute cholecystitis This is a very pleasant 76-year-old gentleman who follows with Dr. King as his primary care physician. He has a history of hyperlipidemia, skin cancer, remote history of smoking however quit in 1960s. He presented here on 2016 with complaints of abdominal cramping nausea and vomiting diarrhea. He was found to have an acute cholecystitis and had undergone laparoscopic cholecystectomy on 12/07/2016. This postoperative day #1. He is seen again in follow-up in the intensive care unit. He is currently sitting up in the chair at the bedside. He is awake and alert in no acute distress. He is maintaining good O2 saturations in the mid 90s on 4 L/m per nasal cannula. He is receiving lactated Ringer's at 125 mL per hour. His pain is well controlled. He denies any worsening shortness of breath, cough or congestion. He is working with the incentive spirometer. Objective - Vital Signs Vital signs: Vital Signs Temp 97.6 F 12/08/16 08:00 Pulse 86 12/08/16 10:00 Resp 19 12/08/16 10:00 BP 102/53 12/08/16 10:00 Pulse Ox 98 12/08/16 10:00 Intake & Output 12/07/16 12/08/16 12/08/16 18:59 06:59 18:59 Intake Total 1475 2086.825 500 Output Total 465 349 130 Balance 1010 1737.825 370 Weight 97.4 kg Intake: IV 1475 1375 500 ACETAMINOPHEN IV (For NPO 100 ) 1,000 mg In Empty Bag 1 bag @ 400 mls/hr IVPB ONCE [facility] Rx#:[id number] Lactated Ringers 1,000 ml 125 1375 500 @ 125 mls/hr IV .Q8H [facility] Rx#:[id number] Magnesium Sulfate-D5w Pmx 200 1 gm In Dextrose/Water 1 100ml.bag @ 100 mls/hr IVPB Q1H [facility] Rx#: [id number] Sodium Chloride 0.9% 1, 1000 000 ml @ 100 mls/hr IV . Q10H [facility] Rx#:[id number] Intake, IV Titration 311.825 Amount ACETAMINOPHEN IV (For NPO 100 ) 1,000 mg In Empty Bag 1 bag @ 400 mls/hr IVPB Q6HR [facility] Rx#:[id number] Ampicillin-Sulbactam 3 gm 100 In Sodium Chloride 0.9% 100 ml @ 100 mls/hr IVPB Q8HR [facility] Rx#:[id number] Naloxone 4 mg In Sodium 111.825 Chloride 0.9% 100 ml @ 0. 6 MG/HR 16.5 mls/hr IV . Q6H40M [facility] Rx#:[id number] Oral 400 Output: Urine 445 349 130 Estimated Blood Loss 20 Other: Voiding Method Indwelling Catheter Indwelling Catheter Indwelling Catheter - Exam GENERAL EXAM: Alert, active, comfortable in no apparent distress. HEAD: Normocephalic. EYES: Normal reaction of pupils, equal size. NOSE: Clear with pink turbinates. THROAT: No erythema or exudates. NECK: No masses, no JVD. CHEST: No chest wall deformity. LUNGS: Equal air entry with no crackles, wheeze, rhonchi or dullness. CVS: S1 and S2 normal with no audible mumurs, regular rhythm. ABDOMEN: Soft, incisions clean dry well approximated, normal bowel sounds, no guarding or rigidity. Extremities: There is no significant peripheral edema. No clubbing, no cyanosis. Peripheral pulses are intact. - Labs CBC & Chem 7: 12/08/16 04:31 12/08/16 04:31 Labs: Abnormal Lab Results - Last 24 Hours (Table) 12/07/16 12/08/16 12/08/16 Range/Units 23:15 04:31 04:31 RBC 4.05 L (4.30-5.90) m/uL Hgb 12.3 L (13.0-17.5) gm/dL Hct 36.8 L (39.0-53.0) % Plt Count 107 L (150-450) k/uL Lymphocytes # 0.5 L (1.0-4.8) k/uL Chloride 111 H 110 H (98-107) mmol/L Carbon Dioxide 18 L 21 L (22-30) mmol/L Calcium 7.1 L 7.1 L (8.4-10.2) mg/dL Assessment and Plan Plan: Impression: #1 Acute abdominal pain secondary to acute cholecystitis. Status post laparoscopic cholecystectomy, postoperative day #1. #2 Lactic acidosis secondary to acute cholecystitis. #3 Mild troponin leak. #4 Hyperlipidemia. Plan: The patient was seen and evaluated by Dr. Ramos. Presently, he remains hemodynamically stable. He is cleared for discharge from the intensive care unit. He will be going to the regular medical floor today. We'll remove his indwelling Simon catheter. He remains on antibiotics in the form of Unasyn. He is on Lovenox for DVT prophylaxis. He is on Protonix for GI prophylaxis. We' ll continue to follow make further recommendations based on his clinical status.
[2016-12-08] MEDS: ONDANSETRON 4 MG/2 ML VIAL IVP PRN (12:34)
--- NOTE | 2016-12-08 12:54 | P.PN ---
Subjective Principal diagnosis: Acute cholecystitis Patient is a 76-year-old male admitted to intensive care unit he underwent laparoscopic cholecystectomy yesterday. He was admitted with evidence of sepsis he remains on IV antibiotic He is stable at this time He has a Simon catheter due to urinary retention, Flomax was added to his regimen, will attempt removal of Simon catheters today. Objective - Vital Signs Vital signs: Vital Signs Temp 97.6 F 12/08/16 08:00 Pulse 73 12/08/16 12:00 Resp 17 12/08/16 12:00 BP 102/54 12/08/16 12:00 Pulse Ox 98 12/08/16 12:00 Intake & Output 12/07/16 12/08/16 12/08/16 18:59 06:59 18:59 Intake Total 1475 2086.825 850 Output Total 465 349 195 Balance 1010 1737.825 655 Weight 97.4 kg Intake: IV 1475 1375 750 ACETAMINOPHEN IV (For NPO 100 ) 1,000 mg In Empty Bag 1 bag @ 400 mls/hr IVPB ONCE [facility] Rx#:[id number] Lactated Ringers 1,000 ml 125 1375 750 @ 125 mls/hr IV .Q8H ONE Rx#:[id number] Magnesium Sulfate-D5w Pmx 200 1 gm In Dextrose/Water 1 100ml.bag @ 100 mls/hr IVPB Q1H [facility] Rx#: [id number] Sodium Chloride 0.9% 1, 1000 000 ml @ 100 mls/hr IV . Q10H [facility] Rx#:[id number] Intake, IV Titration 311.825 100 Amount ACETAMINOPHEN IV (For NPO 100 ) 1,000 mg In Empty Bag 1 bag @ 400 mls/hr IVPB Q6HR [facility] Rx#:[id number] Ampicillin-Sulbactam 3 gm 100 100 In Sodium Chloride 0.9% 100 ml @ 100 mls/hr IVPB Q8HR [facility] Rx#:[id number] Naloxone 4 mg In Sodium 111.825 Chloride 0.9% 100 ml @ 0. 6 MG/HR 16.5 mls/hr IV . Q6H40M [facility] Rx#:[id number] Oral 400 Output: Urine 445 349 195 Estimated Blood Loss 20 Other: Voiding Method Indwelling Catheter Indwelling Catheter Indwelling Catheter - Exam In general patient is alert and oriented 3 in no apparent distress HEENT head normocephalic and atraumatic Neck is supple no JVD no goiter no lymphadenopathy Cardiac exam reveals regular heart sounds no gallops no murmurs Chest exam reveals a few scattered rhonchi no wheezing Abdomen is soft nontender no organomegaly with normal bowel sounds Extremity exam reveals no edema no cyanosis or clubbing - Labs CBC & Chem 7: 12/08/16 04:31 12/08/16 04:31 Labs: Abnormal Lab Results - Last 24 Hours (Table) 12/07/16 12/08/16 12/08/16 Range/Units 23:15 04:31 04:31 RBC 4.05 L (4.30-5.90) m/uL Hgb 12.3 L (13.0-17.5) gm/dL Hct 36.8 L (39.0-53.0) % Plt Count 107 L (150-450) k/uL Lymphocytes # 0.5 L (1.0-4.8) k/uL Chloride 111 H 110 H (98-107) mmol/L Carbon Dioxide 18 L 21 L (22-30) mmol/L Calcium 7.1 L 7.1 L (8.4-10.2) mg/dL Assessment and Plan Plan: #1 Acute abdominal pain secondary to acute cholecystitis. Status post laparoscopic cholecystectomy, postoperative day #1. #2 sepsis with Lactic acidosis secondary to acute cholecystitis. #3 Mild troponin leak. Evaluated by cardiology no intervention recommended at this time #4 Hyperlipidemia. #5 urinary retention Flomax was added to regimen we will attempt removal of Simon catheter today Patient can be discharged out of ICU today he will remain on IV antibiotic Will monitor closely
[2016-12-08] MEDS: TAMSULOSIN 0.4 MG CAP.ER.24H PO SCH ×2 (16:12→21:40)
[2016-12-09] MEDS: AMPICILLIN-SULBACTAM 3 GM in SODIUM CHLORIDE 0.9% 100 ML IVPB SCH ×4 (00:29→23:08)
[2016-12-09] MEDS: ONDANSETRON 4 MG/2 ML VIAL IVP PRN (00:29)
[2016-12-09 07:45] LABS: Glucose,Whole Blood 110 mg/dL (75-99)
[2016-12-09 09:54] LABS: Basophils % (A) 0 %; CH 30.5; Eosinophils % (A) 0 %; HCT 34.7 % (39.0-53.0); HDW 2.99; HGB 11.6 gm/dL (13.0-17.5); Luc # (Auto) 0.13; Luc % (Auto) 2; Lymphocytes # (A) 0.8 k/uL (1.0-4.8); Lymphocytes % (A) 9 %; MCHC 33.3 g/dL (31.0-37.0); MCV 90.2 fL (80.0-100.0); Mean Platelet Volume 7.4; Monocytes # (A) 0.4 k/uL (0-1.0); Monocytes % (A) 5 %; Neutrophils # (A) 6.7 k/uL (1.3-7.7); Neutrophils % (A) 83 %; RBC 3.85 m/uL (4.30-5.90); RDW 13.9 % (11.5-15.5); WBC 8.1 k/uL (3.8-10.6); WBC (Perox) 8.78
[2016-12-09] MEDS: PANTOPRAZOLE 40 MG/10 ML VIAL IVP SCH (10:01)
[2016-12-09] MEDS: ENOXAPARIN 40 MG/0.4 ML SYRINGE SQ SCH (10:02)
[2016-12-09] MEDS: TAMSULOSIN 0.4 MG CAP.ER.24H PO SCH ×2 (10:02→20:37)
[2016-12-09 10:05] LABS: Anion Gap 9 mmol/L; Blood Urea Nitrogen 16 mg/dL (9-20); Calcium 7.3 mg/dL (8.4-10.2); Carbon Dioxide 23 mmol/L (22-30); Chloride 105 mmol/L (98-107); Glucose 145 mg/dL (74-99); Magnesium 2.2 mg/dL (1.6-2.3); Non-African American GFR(MDRD) >60 (>60 ml/min/1.73 sqM); Potassium 3.3 mmol/L (3.5-5.1); Sodium 137 mmol/L (137-145)
[2016-12-09 10:17] LABS: Phosphorous 1.2 mg/dL (2.5-4.5)
[2016-12-09] MEDS ORDERED: MAGNESIUM SULFATE-D5W PMX 1 GM in DEXTROSE/WATER 1 100ML.BAG IVPB SCH (10:45)
--- NOTE | 2016-12-09 10:46 | P.PN ---
Subjective 76-year-old male being seen on rounds this morning. Patient's primary care provider is Dr. King who Dr. Fletcher is covering for. Patient is postop on December 07 lap scopic cholecystectomy. Patient was transferred out of the ICU yesterday to a stepdown unit. Patient states he could not wear the CPAP last night he could not tolerate the mask. Currently has a nasal cannula at 2 L in the sats are 95%. On room air the sats were 90. Patient is using the incentive spirometer with coaching can achieve 750 Patient was admitted with abdominal pain nausea vomiting with evidence of sepsis due to acute cholecystitis noted on a CAT scan of the abdomen started on IV antibiotics patient Objective - Vital Signs Vital signs: Vital Signs Temp 99.2 F 12/09/16 07:00 Pulse 86 12/09/16 07:00 Resp 19 12/09/16 07:00 BP 125/69 12/09/16 07:00 Pulse Ox 95 12/09/16 07:00 Intake & Output 12/08/16 12/09/16 12/09/16 18:59 06:59 18:59 Intake Total 1450 Output Total 195 Balance 1255 Intake: IV 750 Lactated Ringers 1,000 ml 750 @ 125 mls/hr IV .Q8H [facility] Rx#:[id number] Intake, IV Titration 100 Amount Ampicillin-Sulbactam 3 gm 100 In Sodium Chloride 0.9% 100 ml @ 100 mls/hr IVPB Q8HR [facility] Rx#:[id number] Oral 600 Output: Urine 195 Other: Voiding Method Indwelling Catheter # Voids 100 1 # Bowel Movements 0 0 - Exam Physical exam 76-year-old male patient sitting up in bed oriented 3 pleasant cooperative Lungs coarse rhonchi with fine crackles at the bases nasal cannula 2 L sats are 94% using the incentive spirometer with coaching can achieve 750 noted Heart S1-S2 audible regular Abdomen surgical sites dry no redness soft nondistended tolerating clear liquid diet passing gas no stool indwelling Simon catheter has been removed is voiding with no reported difficulty Extremities Venodyne's on to the bilateral lower extremities no edema - Labs CBC & Chem 7: 12/09/16 08:53 12/09/16 08:53 Labs: Abnormal Lab Results - Last 24 Hours (Table) 12/09/16 12/09/16 12/09/16 Range/Units 07:44 08:53 08:53 RBC 3.85 L (4.30-5.90) m/uL Hgb 11.6 L (13.0-17.5) gm/dL Hct 34.7 L (39.0-53.0) % Plt Count 123 L (150-450) k/uL Lymphocytes # 0.8 L (1.0-4.8) k/uL Potassium 3.3 L (3.5-5.1) mmol/L Glucose 145 H (74-99) mg/dL POC Glucose (mg/dL) 110 H (75-99) mg/dL Calcium 7.3 L (8.4-10.2) mg/dL Phosphorus 1.2 L* (2.5-4.5) mg/dL Assessment and Plan Plan: Impression present on admission right upper quadrant abdominal pain nausea vomiting with evidence of acute cholecystitis as noted on a CAT scan of the abdomen Present on admission sepsis secondary to acute cholecystitis meet SIRS criteria leukocytosis tachycardic elevated lactic acid level Mild Elevated troponin with no evidence of chest pain no evidence of an acute coronary syndrome Hyperlipidemia Hypotension suspect due to sepsis urinary retention postop on Flomax Electrolyte abnormality hypo-magnesium hypophosphorous Plan Continue postop surgical care by surgical surgeon Replace electrolytes keep in a therapeutic range repeat labs in the morning Continue to increase the use of the incentive spirometer use every 1 hour while awake Phosphorus to be replaced as ordered Continue Unasyn as ordered Monitor for urinary retention continue with Flomax as ordered DVT and GI prophylaxis Further recommendations pending Pain control Titrate the O2 down keep the sats greater than 90 The above dictated assessment and findings were discussed with dr danielle . Impression and the plan of care have been dictated as directed. Simran Guzman nurse practitioner acting as a scribe for dr fletcher
[2016-12-09] MEDS: POTAS-SOD-PHOS 278-164-250 MG 1 EACH PACKET PO SCH ×3 (11:43→21:42)
--- NOTE | 2016-12-09 16:21 | P.PN ---
Progress Note - Text The patient is stable. Awake alert.. Hungry for some solid food. No nausea or vomiting. On examination the patient is afebrile. Anicteric. Vitals are stable. Abdomen is very soft and benign. Trocar sites looked good. Radha impression and plan status post lap delores for severe acute cholecystitis cholelithiasis. We will advance his diet.
[2016-12-10] MEDS: TAMSULOSIN 0.4 MG CAP.ER.24H PO SCH ×2 (08:17→20:53)
[2016-12-10] MEDS: POTAS-SOD-PHOS 278-164-250 MG 1 EACH PACKET PO SCH ×3 (08:17→20:54)
[2016-12-10] MEDS: ENOXAPARIN 40 MG/0.4 ML SYRINGE SQ SCH (08:17)
[2016-12-10] MEDS: AMPICILLIN-SULBACTAM 3 GM in SODIUM CHLORIDE 0.9% 100 ML IVPB SCH (08:18)
[2016-12-10] MEDS: PANTOPRAZOLE 40 MG/10 ML VIAL IVP SCH (08:18)
[2016-12-10 08:27] LABS: Basophils % (A) 0 %; CH 30.5; CHCM 34.2; Eosinophils # (A) 0.2 k/uL (0-0.7); Eosinophils % (A) 3 %; HCT 36.2 % (39.0-53.0); HDW 3.05; HGB 12.1 gm/dL (13.0-17.5); Luc % (Auto) 3; Lymphocytes # (A) 0.9 k/uL (1.0-4.8); Lymphocytes % (A) 12 %; MCH 29.9 pg (25.0-35.0); MCHC 33.4 g/dL (31.0-37.0); MCV 89.5 fL (80.0-100.0); Mean Platelet Volume 7.5; Monocytes # (A) 0.4 k/uL (0-1.0); Monocytes % (A) 5 %; Neutrophils # (A) 6.2 k/uL (1.3-7.7); Neutrophils % (A) 78 %; RBC 4.04 m/uL (4.30-5.90); RDW 13.6 % (11.5-15.5)
[2016-12-10 08:41] LABS: Anion Gap 7 mmol/L; Blood Urea Nitrogen 12 mg/dL (9-20); Calcium 7.6 mg/dL (8.4-10.2); Carbon Dioxide 29 mmol/L (22-30); Chloride 104 mmol/L (98-107); Glucose 104 mg/dL (74-99); Magnesium 2.1 mg/dL (1.6-2.3); Non-African American GFR(MDRD) >60 (>60 ml/min/1.73 sqM); Phosphorous 2.1 mg/dL (2.5-4.5); Potassium 3.3 mmol/L (3.5-5.1); Sodium 140 mmol/L (137-145)
[2016-12-10] MEDS ORDERED: HYDROcodone/APAP 7.5-325MG 1 EACH TAB PO PRN (08:48)
[2016-12-10] MEDS ORDERED: POTASSIUM CHLORIDE ER 20 MEQ TAB.ER PO STA (11:59)
--- NOTE | 2016-12-10 12:06 | P.PN ---
Subjective Patient presented with acute cholecystitis and sepsis. Status post lap scopic cholecystectomy. Tolerating soft diet. Patient did have positive blood culture. Infectious disease consulted. Repeat blood culture ordered. Patient reports pain is controlled. Denies any nausea or vomiting. Denies any chest pain or shortness of breath. Denies any difficulty urinating. Objective - Vital Signs Vital signs: Vital Signs Temp 96.9 F L 12/10/16 07:00 Pulse 77 12/10/16 08:00 Resp 16 12/10/16 08:00 BP 111/64 12/10/16 07:00 Pulse Ox 98 12/10/16 07:00 Intake & Output 12/09/16 12/10/16 12/10/16 18:59 06:59 18:59 Intake Total 1180 320 240 Output Total 1900 460 Balance -720 -140 240 Weight 97.4 kg Intake: IV 220 0.9 NS @ 20 ml/hr 220 Intake, IV Titration 100 100 Amount Ampicillin-Sulbactam 3 gm 100 100 In Sodium Chloride 0.9% 100 ml @ 100 mls/hr IVPB Q8HR [facility] Rx#:[id number] Oral 1080 240 Output: Urine 1600 400 Straight 300 Uretheral (Simon) 300 Post Void Residual 300 60 Other: Voiding Method Urinal Bedside Commode Bedside Commode # Voids 2 1 # Bowel Movements 0 - Exam Head normocephalic Neck supple Lungs clear to auscultation bilaterally no wheezing or crackles Heart regular rate and rhythm S1-S2, no rub or gallop Abdomen is soft nontender nondistended positive bowel sounds no hepatosplenomegaly Extremities no edema Neuro alert and orientated to 3 - Labs CBC & Chem 7: 12/10/16 08:17 12/10/16 08:17 Labs: Abnormal Lab Results - Last 24 Hours (Table) 12/10/16 12/10/16 Range/Units 08:17 08:17 RBC 4.04 L (4.30-5.90) m/uL Hgb 12.1 L (13.0-17.5) gm/dL Hct 36.2 L (39.0-53.0) % Plt Count 128 L (150-450) k/uL Lymphocytes # 0.9 L (1.0-4.8) k/uL Potassium 3.3 L (3.5-5.1) mmol/L Glucose 104 H (74-99) mg/dL Calcium 7.6 L (8.4-10.2) mg/dL Phosphorus 2.1 L (2.5-4.5) mg/dL Assessment and Plan Plan: 1. Acute cholecystitis: Status post lap scopic cholecystectomy. Continue with IV antibiotics. Tolerating diet 2. Sepsis present on admission secondary to the acute cholecystitis. Patient had leukocytosis, tachycardia and elevated lactic acid level of 7.2. Continue with antibiotics and IV fluids. 3. Elevated troponins no evidence of chest pain. Patient evaluated by Court cardiology no evidence any acute coronary syndrome. 4. Hypotension secondary to sepsis improving with IV fluids. Continue to monitor. 5. History of being a former smoker 6. Hyperlipidemia 7. Bacteremia with one positive blood culture showing gram-negative bacilli. Repeat blood cultures. Consult infectious disease 8. Hypokalemia patient receiving potassium supplement. 9. Hypophosphatemia improving continue with phosphorus supplement 10. Urinary retention resolved currently on Flomax GI prophylaxis Protonix and DVT prophylaxis Lovenox
--- NOTE | 2016-12-10 12:40 | P.PN ---
Subjective Patient is a 76-year-old male admitted with evidence of severe acute gangrenous cholecystitis and cholelithiasis status post laparoscopic cholecystectomy, postop day #3. Patient is evaluated on the medical floor raise currently sitting up in the chair. Denies nausea, vomiting, shortness of breath, or chest pain. Incisional pain controlled. Passing flatus. Urinating without difficulty. Tolerating a soft diet. Afebrile. WBC 8.0. Hemoglobin stable at 12.1. Objective - Vital Signs Vital signs: Vital Signs Temp 96.9 F L 12/10/16 07:00 Pulse 77 12/10/16 08:00 Resp 16 12/10/16 08:00 BP 111/64 12/10/16 07:00 Pulse Ox 98 12/10/16 07:00 Intake & Output 12/09/16 12/10/16 12/10/16 18:59 06:59 18:59 Intake Total 1180 320 240 Output Total 1900 460 Balance -720 -140 240 Weight 97.4 kg Intake: IV 220 0.9 NS @ 20 ml/hr 220 Intake, IV Titration 100 100 Amount Ampicillin-Sulbactam 3 gm 100 100 In Sodium Chloride 0.9% 100 ml @ 100 mls/hr IVPB Q8HR [facility] Rx#:[id number] Oral 1080 240 Output: Urine 1600 400 Straight 300 Uretheral (Simon) 300 Post Void Residual 300 60 Other: Voiding Method Urinal Bedside Commode Bedside Commode # Voids 2 1 # Bowel Movements 0 - Exam GENERAL: Pt awake and alert, well-appearing, well-nourished, and in no acute distress. LUNGS: Breath sounds clear to auscultation bilaterally. No wheezes, rales, or rhonchi. HEART: Heart S1, S2, no S3 or S4. Regular rate and rhythm. No murmurs, rubs or gallops. ABDOMEN: Soft, mild incisional tenderness, nondistended, normoactive bowel sounds. No guarding, no rebound. No masses or organomegaly appreciated. Laparoscopic surgical incisions dry, intact, no erythema or purulent drainage. NEUROLOGICAL: Pt oriented x 3. - Labs CBC & Chem 7: 12/10/16 08:17 12/10/16 08:17 Labs: Abnormal Lab Results - Last 24 Hours (Table) 12/10/16 12/10/16 Range/Units 08:17 08:17 RBC 4.04 L (4.30-5.90) m/uL Hgb 12.1 L (13.0-17.5) gm/dL Hct 36.2 L (39.0-53.0) % Plt Count 128 L (150-450) k/uL Lymphocytes # 0.9 L (1.0-4.8) k/uL Potassium 3.3 L (3.5-5.1) mmol/L Glucose 104 H (74-99) mg/dL Calcium 7.6 L (8.4-10.2) mg/dL Phosphorus 2.1 L (2.5-4.5) mg/dL Assessment and Plan Plan: Impression: 1. Acute gangrenous cholecystitis with cholelithiasis status post laparoscopic cholecystectomy on 12/07/2016. Plan: 1. Continue soft diet. Continue IV antibiotics. Continue supportive treatment and pain management. Increase activity. Continue medical management. From surgical standpoint, patient is stable for discharge when cleared medically. Patient will follow-up with Dr. Leon in the outpatient setting in 1 week after discharge. The above impression and plan have been discussed and directed by Dr. Leon. Rashel RAMIREZ acting as scribe for Dr. Doherty.
[2016-12-10] MEDS: PIPERACILLIN-TAZOBACTAM 3.375 GM in DEXTROSE/WATER 1 50ML.BAG IVPB SCH ×2 (16:29→23:06)
[2016-12-10] MEDS: ZOLPIDEM 5 MG TAB PO PRN (20:53)
--- NOTE | 2016-12-10 21:45 | CONS ---
DATE OF CONSULTATION: 12/10/2016 REASON FOR CONSULTATION: Bacteremia. HISTORY OF PRESENT ILLNESS: The patient is a 76-year-old male who was brought into the ER at [facility] on 12/06/2016 with the chief complaints of nausea, vomiting and diarrhea. His symptoms had been going on 4 days before coming to the hospital. The patient did have a fever of 101.5 degrees Fahrenheit in the ER. Patient had a CT of the abdomen and pelvis that was suspicious for acute cholecystitis. The patient did have blood cultures obtained and was started on IV Unasyn. The patient subsequently has been elevated by Dr. Leon from Surgery and did have laparoscopic cholecystectomy done. The blood culture reported this morning positive for Gram-negative bacilli; hence ID was consulted for further recommendation regarding antibiotic therapy. The patient's fever has resolved now. The patient denies having any significant chest pain or shortness of breath; has a very mild cough. Patient's abdominal pain has improved. No nausea. No vomiting or any diarrhea. REVIEW OF SYSTEMS: CONSTITUTIONAL: Positive for weakness and a fever on admission that has resolved. EYES: No complaint. ENT: No complaint. RESPIRATORY: As per HPI. CARDIOVASCULAR: No complaint. GENITOURINARY: No complaint. GASTROINTESTINAL: As per HPI. MUSCULOSKELETAL: No complaint. INTEGUMENTARY: No complaint. PSYCHOLOGIC: No complaint. ENDOCRINE: No complaint. NEUROLOGIC: No complaint. Past medical history is significant for: 1. Hyperlipidemia. 2. History of skin cancer. 3. Environmental allergies. PAST SURGICAL HISTORY: Adenoidectomy tonsillectomy. SOCIAL HISTORY: The patient quit smoking back in 1960. Denies any drinking or drug use. FAMILY HISTORY: Both mother and brother with history of cancer. ALLERGIES: NO KNOWN DRUG ALLERGIES. Medications currently include: 1. Unasyn 3 grams q.6. 2. Ambien. 3. Flomax. 4. Protonix. 5. Zofran. 6. Narcan. 7. Dilaudid. 8. Lovenox. 9. [place]. On examination, blood pressure is 111/60 with a pulse of 72, temperature 98.3. He is 98% on 4 L nasal cannula. General description is an elderly male up in the bed in no distress. No tachypnea or accessory muscle of respiration use. HEENT EXAMINATION: Slight pallor. No scleral icterus. Oral mucous membrane is dry. NECK: Trachea is central. There is no thyromegaly. LUNGS: Unlabored breathing with decreased breath sounds at the base. No wheeze. HEART: S1, S2. Regular rate and rhythm. ABDOMEN: Soft. No tenderness. EXTREMITIES: No edema of feet. SKIN EXAMINATION: No rash or mass palpable. Neurologically the patient is awake, alert, oriented x3. Mood and affect normal. LABS: Hemoglobin is 12.1, white count 8.0 with a BUN of 12, creatinine 0.77. Patient did have a chest x-ray on 12/08 which showed bilateral areas of subsegmental consolidation. DIAGNOSTIC IMPRESSION AND PLAN: Patient admitted to hospital with Gram-negative bacteremia in a patient admitted to hospital with sepsis with a fever and elevated white count, nausea and vomiting. Source is likely acute cholecystitis with likely Gram-negative pathogen. Patient is currently with no other clinical focus of infection. The x-ray did show some evidence of subsegmental atelectasis, more likely than pneumonia, as the patient has no significant respiratory symptoms. PLAN: 1. Blood culture x1. Repeat to make sure no evidence of any persistent bacteremia. 2. Will switch antibiotic therapy to Zosyn while waiting for the final ID which is Gram-negative. 3. Will follow up on the clinical condition and cultures to further adjust medication if needed. Thank you for this consultation. We will follow this patient along with you.
[2016-12-11] MEDS: POTAS-SOD-PHOS 278-164-250 MG 1 EACH PACKET PO SCH ×3 (08:04→20:09)
[2016-12-11] MEDS: PIPERACILLIN-TAZOBACTAM 3.375 GM in DEXTROSE/WATER 1 50ML.BAG IVPB SCH ×3 (08:04→23:34)
[2016-12-11] MEDS: PANTOPRAZOLE 40 MG/10 ML VIAL IVP SCH (08:04)
[2016-12-11] MEDS: ENOXAPARIN 40 MG/0.4 ML SYRINGE SQ SCH (08:05)
[2016-12-11] MEDS: TAMSULOSIN 0.4 MG CAP.ER.24H PO SCH ×2 (08:05→20:09)
[2016-12-11 10:30] LABS: Basophils % (A) 0 %; CH 30.3; CHCM 34.1; Eosinophils # (A) 0.3 k/uL (0-0.7); Eosinophils % (A) 4 %; HCT 35.3 % (39.0-53.0); HGB 11.8 gm/dL (13.0-17.5); Luc % (Auto) 2; Lymphocytes # (A) 0.8 k/uL (1.0-4.8); Lymphocytes % (A) 13 %; MCH 29.9 pg (25.0-35.0); MCHC 33.4 g/dL (31.0-37.0); MCV 89.6 fL (80.0-100.0); Mean Platelet Volume 7.8; Monocytes # (A) 0.5 k/uL (0-1.0); Monocytes % (A) 7 %; Neutrophils # (A) 4.8 k/uL (1.3-7.7); Neutrophils % (A) 74 %; RBC 3.94 m/uL (4.30-5.90); RDW 13.7 % (11.5-15.5); WBC 6.4 k/uL (3.8-10.6); WBC (Perox) 7.02
[2016-12-11 10:35] LABS: Anion Gap 9 mmol/L; Blood Urea Nitrogen 11 mg/dL (9-20); Calcium 7.5 mg/dL (8.4-10.2); Carbon Dioxide 27 mmol/L (22-30); Chloride 101 mmol/L (98-107); Glucose 130 mg/dL (74-99); Magnesium 1.9 mg/dL (1.6-2.3); Non-African American GFR(MDRD) >60 (>60 ml/min/1.73 sqM); Phosphorous 3.1 mg/dL (2.5-4.5); Potassium 3.5 mmol/L (3.5-5.1); Sodium 137 mmol/L (137-145)
--- NOTE | 2016-12-11 10:35 | P.PN ---
Subjective This is a progress note dictated for November. This patient with history of hypertension was admitted to the hospital with abdominal pain and diarrhea. Cardiology was consulted because of abnormal troponin and also evidence of left bundle branch block pattern. It was felt that troponin values are nonspecific and could be related to underlying sepsis and acute abdomen. Subsequently patient underwent cholecystectomy for acute cholecystitis. His blood cultures were reported as positive for gram-positive bacilli. Is being treated with IV antibiotics. From Cardec standpoint patient seemed to be stable. His diet is being advanced and is tolerating well. He is afebrile Objective - Vital Signs Vital signs: Vital Signs Temp 97.3 F L 12/11/16 07:00 Pulse 97 12/11/16 07:00 Resp 18 12/11/16 07:00 BP 108/56 12/11/16 07:00 Pulse Ox 97 12/11/16 07:00 Intake & Output 12/10/16 12/11/16 12/11/16 18:59 06:59 18:59 Intake Total 440 270 Output Total 598 325 Balance -158 -55 Weight 97.4 kg Intake: IV 220 0.9 NS @ 20 ml/hr 220 Intake, IV Titration 50 Amount Piperacillin-Tazobactam 3 50 .375 gm In Dextrose/Water 1 50ml.bag @ 12.5 mls/hr IVPB Q8HR [facility] Rx#: [id number] Oral 440 Output: Urine 545 325 Post Void Residual 53 Other: Voiding Method Bedside Commode Urinal # Voids 1 1 # Bowel Movements 0 - Exam GENERAL EXAM: Patient is alert and oriented and doesn't appear to be in any acute distress HEENT: Normocephalic. Normal reaction of pupils, equal size, normal range of extraocular motion. No erythema or exudates in the throat. NECK: No masses, no nuchal rigidity. CHEST: No chest wall deformity. LUNGS: Equal air entry with no crackles or wheeze. HEART: S1 and S2 normal with no audible mumurs or gallops. Regular rhythm, femorals equal on both sides.. ABDOMEN: Postsurgical SKIN: No rashes CENTRAL NERVOUS SYSTEM: No focal deficits. EXTREMITIES: No cyanosis, clubbing or edema. - Labs CBC & Chem 7: 12/10/16 08:17 12/10/16 08:17 Assessment and Plan (1) Troponin level elevated Status: Acute (2) Sepsis Status: Acute (3) Left bundle branch block Status: Acute Plan: Continue with antibiotic therapy. Patient appears to be progressing fairly well. No acute cardiac issues. We'll follow him as needed. Follow-up as an outpatient
--- NOTE | 2016-12-11 13:29 | P.PN ---
Subjective Patient is a 76-year-old male admitted with evidence of severe acute gangrenous cholecystitis and cholelithiasis status post laparoscopic cholecystectomy, postop day #4. Patient is evaluated on the medical floor raise currently sitting up in the chair. Denies nausea, vomiting, shortness of breath, or chest pain. Incisional pain controlled. Passing flatus. Urinating without difficulty. Tolerating a soft diet. Afebrile. WBC 6.4. Hemoglobin stable at 11.8. Objective - Vital Signs Vital signs: Vital Signs Temp 97.3 F L 12/11/16 07:00 Pulse 97 12/11/16 08:00 Resp 18 12/11/16 08:00 BP 108/56 12/11/16 07:00 Pulse Ox 97 12/11/16 07:00 Intake & Output 12/10/16 12/11/16 12/11/16 18:59 06:59 18:59 Intake Total 440 270 Output Total 598 325 200 Balance -158 -55 -200 Weight 97.4 kg 97.4 kg Intake: IV 220 0.9 NS @ 20 ml/hr 220 Intake, IV Titration 50 Amount Piperacillin-Tazobactam 3 50 .375 gm In Dextrose/Water 1 50ml.bag @ 12.5 mls/hr IVPB Q8HR [facility] Rx#: [id number] Oral 440 Output: Urine 545 325 200 Post Void Residual 53 Other: Voiding Method Bedside Commode Urinal Urinal # Voids 1 1 # Bowel Movements 0 0 - Exam GENERAL: Pt awake and alert, well-appearing, well-nourished, and in no acute distress. LUNGS: Breath sounds clear to auscultation bilaterally. No wheezes, rales, or rhonchi. HEART: Heart S1, S2, no S3 or S4. Regular rate and rhythm. No murmurs, rubs or gallops. ABDOMEN: Soft, mild incisional tenderness, nondistended, normoactive bowel sounds. No guarding, no rebound. No masses or organomegaly appreciated. Laparoscopic surgical incisions dry, intact, no erythema or purulent drainage. NEUROLOGICAL: Pt oriented x 3. - Labs CBC & Chem 7: 12/11/16 09:27 12/11/16 09:27 Labs: Abnormal Lab Results - Last 24 Hours (Table) 12/11/16 12/11/16 Range/Units 09:27 09:27 RBC 3.94 L (4.30-5.90) m/uL Hgb 11.8 L (13.0-17.5) gm/dL Hct 35.3 L (39.0-53.0) % Plt Count 140 L (150-450) k/uL Lymphocytes # 0.8 L (1.0-4.8) k/uL Glucose 130 H (74-99) mg/dL Calcium 7.5 L (8.4-10.2) mg/dL Microbiology - Last 24 Hours (Table) 12/10/16 09:15 Blood Culture - Preliminary Blood No Growth after 24 hours Assessment and Plan Plan: Impression: 1. Acute gangrenous cholecystitis with cholelithiasis status post laparoscopic cholecystectomy on 12/07/2016. Plan: 1. Continue soft diet. Continue IV antibiotics. Continue supportive treatment and pain management. Increase activity. Continue medical management. From surgical standpoint, patient is stable for discharge when cleared medically. Patient will follow-up with Dr. Leon in the outpatient setting in 1 week after discharge. The above impression and plan have been discussed and directed by Dr. Leon. Rashel RAMIREZ acting as scribe for Dr. Doherty.
[2016-12-11 15:04] VITALS: RESP 16
--- NOTE | 2016-12-11 19:17 | P.PN ---
Subjective Principal diagnosis: Acute cholecystitis Patient is a 76-year-old male admitted to intensive care unit he underwent laparoscopic cholecystectomy yesterday. He was admitted with evidence of sepsis he remains on IV antibiotic He is stable at this time He has a Simon catheter due to urinary retention, Flomax was added to his regimen, will attempt removal of Simon catheters today. Objective - Vital Signs Vital signs: Vital Signs Temp 97.1 F L 12/11/16 15:00 Pulse 73 12/11/16 16:00 Resp 16 12/11/16 16:00 BP 128/73 12/11/16 15:00 Pulse Ox 97 12/11/16 15:00 Intake & Output 12/11/16 12/11/16 12/12/16 06:59 18:59 06:59 Intake Total 270 200 Output Total 325 700 Balance -55 -500 Weight 97.4 kg Intake: IV 220 0.9 NS @ 20 ml/hr 220 Intake, IV Titration 50 Amount Piperacillin-Tazobactam 3 50 .375 gm In Dextrose/Water 1 50ml.bag @ 12.5 mls/hr IVPB Q8HR [facility] Rx#: [id number] Oral 200 Output: Urine 325 450 Post Void Residual 250 Other: Voiding Method Urinal Urinal # Voids 1 # Bowel Movements 0 - Exam In general patient is alert and oriented 3 in no apparent distress HEENT head normocephalic and atraumatic Neck is supple no JVD no goiter no lymphadenopathy Cardiac exam reveals regular heart sounds no gallops no murmurs Chest exam reveals a few scattered rhonchi no wheezing Abdomen is soft nontender no organomegaly with normal bowel sounds Extremity exam reveals no edema no cyanosis or clubbing - Labs CBC & Chem 7: 12/11/16 09:27 12/11/16 09:27 Labs: Abnormal Lab Results - Last 24 Hours (Table) 12/11/16 12/11/16 Range/Units 09:27 09:27 RBC 3.94 L (4.30-5.90) m/uL Hgb 11.8 L (13.0-17.5) gm/dL Hct 35.3 L (39.0-53.0) % Plt Count 140 L (150-450) k/uL Lymphocytes # 0.8 L (1.0-4.8) k/uL Glucose 130 H (74-99) mg/dL Calcium 7.5 L (8.4-10.2) mg/dL Microbiology - Last 24 Hours (Table) 12/10/16 09:15 Blood Culture - Preliminary Blood No Growth after 24 hours Assessment and Plan Plan: #1 Acute abdominal pain secondary to acute cholecystitis. Status post laparoscopic cholecystectomy, postoperative day #2 #2 sepsis with positive blood culture with Lactic acidosis secondary to acute cholecystitis. #3 Mild troponin leak. Evaluated by cardiology no intervention recommended at this time #4 Hyperlipidemia. #5 urinary retention Flomax was added to regimen we will attempt removal of Simon catheter today Continue was current IV antibiotic Will monitor closely will follow in a.m.
[2016-12-11] MEDS: ZOLPIDEM 5 MG TAB PO PRN (20:28)
[2016-12-12] MEDS: PIPERACILLIN-TAZOBACTAM 3.375 GM in DEXTROSE/WATER 1 50ML.BAG IVPB SCH ×2 (08:31→17:11)
--- NOTE | 2016-12-12 08:32 | PN ---
DATE OF SERVICE: 12/11/2016 Reason for followup is Gram-negative bacteremia. INTERVAL HISTORY: The patient is afebrile. He has been breathing comfortably. Denies significant chest pain, cough. No abdominal pain. No nausea, vomiting or any diarrhea. On examination, blood pressure is 128/73 with a pulse of 73, temperature 97.1. He is 97% on 2 L nasal cannula. General description is an elderly male up in the chair in no distress. RESPIRATORY SYSTEM: Unlabored breathing. Some decreased breath sounds at the base. HEART: S1, S2. Regular rate and rhythm. ABDOMEN: Soft, no tenderness. LABS: Hemoglobin is 11.8, white count 6.4. BUN of 11, creatinine 0.76. Blood cultures gram-negative ID and sensitivity is pending. DIAGNOSTIC IMPRESSION AND PLAN: Patient with Gram-negative bacteremia in a patient admitted to hospital with acute cholecystitis. Source is likely abdominal and related to his cholecystitis. We are still awaiting for the final ID of this pathogen to determine his discharge antibiotics. Continue the patient on Zosyn at this point. Continue supportive care.
[2016-12-12 09:01] LABS: ALT 47 U/L (21-72); AST 40 U/L (17-59); Alkaline Phosphatase 81 U/L (38-126); Anion Gap 9 mmol/L; Blood Urea Nitrogen 11 mg/dL (9-20); Calcium 7.7 mg/dL (8.4-10.2); Carbon Dioxide 28 mmol/L (22-30); Chloride 100 mmol/L (98-107); Glucose 92 mg/dL (74-99); Magnesium 1.8 mg/dL (1.6-2.3); Non-African American GFR(MDRD) >60 (>60 ml/min/1.73 sqM); Phosphorous 3.5 mg/dL (2.5-4.5); Potassium 3.5 mmol/L (3.5-5.1); Sodium 137 mmol/L (137-145); Total Bilirubin 1.1 mg/dL (0.2-1.3); Total Protein 4.6 g/dL (6.3-8.2)
[2016-12-12 09:23] LABS: Basophils % (A) 0 %; CH 30.4; CHCM 34.1; Eosinophils # (A) 0.3 k/uL (0-0.7); Eosinophils % (A) 4 %; HCT 34.7 % (39.0-53.0); HDW 2.94; HGB 11.5 gm/dL (13.0-17.5); Luc # (Auto) 0.25; Luc % (Auto) 4; Lymphocytes # (A) 1.3 k/uL (1.0-4.8); Lymphocytes % (A) 18 %; MCH 29.7 pg (25.0-35.0); MCHC 33.2 g/dL (31.0-37.0); MCV 89.5 fL (80.0-100.0); Mean Platelet Volume 6.9; Monocytes # (A) 0.6 k/uL (0-1.0); Monocytes % (A) 8 %; Neutrophils # (A) 4.7 k/uL (1.3-7.7); Neutrophils % (A) 66 %; RBC 3.88 m/uL (4.30-5.90); RDW 13.4 % (11.5-15.5); WBC (Perox) 7.53
[2016-12-12] MEDS: TAMSULOSIN 0.4 MG CAP.ER.24H PO SCH (09:35)
[2016-12-12] MEDS: ENOXAPARIN 40 MG/0.4 ML SYRINGE SQ SCH (09:35)
[2016-12-12] MEDS: POTAS-SOD-PHOS 278-164-250 MG 1 EACH PACKET PO SCH ×2 (09:35→17:12)
[2016-12-12] MEDS: PANTOPRAZOLE 40 MG/10 ML VIAL IVP SCH (09:35)
[2016-12-12] MEDS ORDERED: LORATADINE 10 MG TAB PO SCH (10:00)
--- NOTE | 2016-12-12 12:30 | PN ---
DATE OF SERVICE: 12/12/2016 Reason for followup is Gram-negative bacteremia, source likely acute cholecystitis. INTERVAL HISTORY: The patient is afebrile. He has been breathing comfortably. Denies significant chest pain. Occasional cough. No abdominal pain and no diarrhea. On examination, blood pressure 112/57 with the pulse of 71, temperature 97.5. He is 96% on 2 L nasal cannula. General description is an elderly male, up in the chair in no distress. RESPIRATORY SYSTEM: Unlabored breathing. Some decreased breath sounds at the base. No wheeze. HEART: S1, S2. Regular rate and rhythm. ABDOMEN: Soft. No tenderness. LABS: Hemoglobin 11.5, white count 7.0 with a BUN of 11, creatinine 0.85. Follow up blood culture of 12/10 negative. The blood culture initial still showing Gram-negative. ID sensitivity is pending. DIAGNOSTIC IMPRESSION AND PLAN: Patient with Gram-negative bacteremia source is likely abdominal and the patient did have acute cholecystitis, status post cholecystectomy. Still waiting for the final ID and sensitivity pathogen to determine discharge antibiotics. Continue supportive care. FRANK
--- NOTE | 2016-12-12 13:39 | P.PN ---
Subjective Patient is a 76-year-old male admitted with evidence of severe acute gangrenous cholecystitis and cholelithiasis status post laparoscopic cholecystectomy, postop day #5. Patient is evaluated on the medical floor raise currently sitting up in the chair. Denies nausea, vomiting, shortness of breath, or chest pain. Incisional pain controlled. Passing flatus without bowel movement. Urinating without difficulty. Tolerating a soft diet. Afebrile. WBC 7. Hemoglobin stable at 11.5. Objective - Vital Signs Vital signs: Vital Signs Temp 97.5 F L 12/12/16 07:00 Pulse 71 12/12/16 07:00 Resp 16 12/12/16 07:00 BP 112/67 12/12/16 07:00 Pulse Ox 96 12/12/16 07:00 Intake & Output 12/11/16 12/12/16 12/12/16 18:59 06:59 18:59 Intake Total 200 270 Output Total 700 Balance -500 270 Weight 97.4 kg 109 kg Intake: IV 220 0.9 NS @ 20 ml/hr 220 Intake, IV Titration 50 Amount Piperacillin-Tazobactam 3 50 .375 gm In Dextrose/Water 1 50ml.bag @ 12.5 mls/hr IVPB Q8HR [facility] Rx#: [id number] Oral 200 Output: Urine 450 Post Void Residual 250 Other: Voiding Method Urinal Urinal # Voids 1 # Bowel Movements 0 - Exam GENERAL: Pt awake and alert, well-appearing, well-nourished, and in no acute distress. LUNGS: Breath sounds clear to auscultation bilaterally. No wheezes, rales, or rhonchi. HEART: Heart S1, S2, no S3 or S4. Regular rate and rhythm. No murmurs, rubs or gallops. ABDOMEN: Soft, mild incisional tenderness, nondistended, normoactive bowel sounds. No guarding, no rebound. No masses or organomegaly appreciated. Laparoscopic surgical incisions dry, intact, no erythema or purulent drainage. NEUROLOGICAL: Pt oriented x 3. - Labs CBC & Chem 7: 12/12/16 08:11 12/12/16 08:11 Labs: Abnormal Lab Results - Last 24 Hours (Table) 12/12/16 12/12/16 Range/Units 08:11 08:11 RBC 3.88 L (4.30-5.90) m/uL Hgb 11.5 L (13.0-17.5) gm/dL Hct 34.7 L (39.0-53.0) % Calcium 7.7 L (8.4-10.2) mg/dL Total Protein 4.6 L (6.3-8.2) g/dL Albumin 2.3 L (3.5-5.0) g/dL Microbiology - Last 24 Hours (Table) 12/10/16 09:15 Blood Culture - Preliminary Blood No Growth after 48 hours Assessment and Plan Plan: Impression: 1. Acute gangrenous cholecystitis with cholelithiasis status post laparoscopic cholecystectomy on 12/07/2016. Plan: 1. Continue low-fat diet. Continue IV antibiotics while awaiting finalization of blood culture. Continue supportive treatment and pain management. Increase activity. Continue medical management. From surgical standpoint, patient is stable for discharge when cleared medically. Patient will follow-up with Dr. Leon in the outpatient setting in 1 week after discharge. The above impression and plan have been discussed and directed by Dr. Leon. Rashel RAMIREZ acting as scribe for Dr. Doherty.
--- NOTE | 2016-12-12 14:06 | P.PN ---
Subjective Principal diagnosis: Acute cholecystitis Patient is a 76-year-old male admitted to intensive care unit he underwent laparoscopic cholecystectomy yesterday. He was admitted with evidence of sepsis he remains on IV antibiotic He is stable at this time He has a Simon catheter due to urinary retention, Flomax was added to his regimen, will attempt removal of Simon catheters today. Objective - Vital Signs Vital signs: Vital Signs Temp 97.5 F L 12/12/16 07:00 Pulse 71 12/12/16 07:00 Resp 16 12/12/16 07:00 BP 112/67 12/12/16 07:00 Pulse Ox 96 12/12/16 07:00 Intake & Output 12/11/16 12/12/16 12/12/16 18:59 06:59 18:59 Intake Total 200 270 Output Total 700 Balance -500 270 Weight 97.4 kg 109 kg Intake: IV 220 0.9 NS @ 20 ml/hr 220 Intake, IV Titration 50 Amount Piperacillin-Tazobactam 3 50 .375 gm In Dextrose/Water 1 50ml.bag @ 12.5 mls/hr IVPB Q8HR [facility] Rx#: [id number] Oral 200 Output: Urine 450 Post Void Residual 250 Other: Voiding Method Urinal Urinal # Voids 1 # Bowel Movements 0 - Exam In general patient is alert and oriented 3 in no apparent distress HEENT head normocephalic and atraumatic Neck is supple no JVD no goiter no lymphadenopathy Cardiac exam reveals regular heart sounds no gallops no murmurs Chest exam reveals a few scattered rhonchi no wheezing Abdomen is soft nontender no organomegaly with normal bowel sounds Extremity exam reveals no edema no cyanosis or clubbing - Labs CBC & Chem 7: 12/12/16 08:11 12/12/16 08:11 Labs: Abnormal Lab Results - Last 24 Hours (Table) 12/12/16 12/12/16 Range/Units 08:11 08:11 RBC 3.88 L (4.30-5.90) m/uL Hgb 11.5 L (13.0-17.5) gm/dL Hct 34.7 L (39.0-53.0) % Calcium 7.7 L (8.4-10.2) mg/dL Total Protein 4.6 L (6.3-8.2) g/dL Albumin 2.3 L (3.5-5.0) g/dL Microbiology - Last 24 Hours (Table) 12/10/16 09:15 Blood Culture - Preliminary Blood No Growth after 48 hours Assessment and Plan Plan: #1 Acute abdominal pain secondary to acute cholecystitis. Status post laparoscopic cholecystectomy, postoperative day #2 #2 sepsis with positive blood culture for gram-negative bacilli continue was current IV antibiotics we are awaiting ID and sensitivity on bacteria on culture Dr. Pulliam infectious disease also following. #3 Mild troponin leak. Evaluated by cardiology no intervention recommended at this time #4 Hyperlipidemia. #5 urinary retention Flomax was added to regimen we will attempt removal of Simon catheter today Continue was current IV antibiotic Will monitor closely will follow in a.m.
[2016-12-12 15:52] VITALS: BP 120/67; PULSE 79; TEMP 98
--- NOTE | 2016-12-12 16:57 | P.DS ---
Providers Date of admission: 12/06/16 21:07 Expected date of discharge: 12/12/16 Attending physician: Luisa Fletcher Consults: 12/07/16 01:25 Consult Physician Stat Consulting Provider: Afia Carlton Consult Reason/Comments: Elevated Cardiac Profile Do you want consulting provider notified?: Yes 12/07/16 08:10 Consult Physician Stat Consulting Provider: Rikki Leon Consult Reason/Comments: acute cholecystitis Do you want consulting provider notified?: Already Contacted 12/10/16 08:34 Consult Physician Routine Consulting Provider: Dayday Samano Consult Reason/Comments: positive blood culture Do you want consulting provider notified?: Yes Primary care physician: Margarito King Hospital Course: Diagnosis on discharge #1 acute cholecystitis #2 sepsis with positive blood culture for E. coli #3 elevated troponin level #4 hypotension related to sepsis #5 hyperlipidemia #6 hypokalemia #7 hypophosphatemia #8 urinary retention Hospital course patient is a 76-year-old male admitted with severe abdominal pain and hypotension patient had evidence of acute cholecystitis with sepsis with elevated lactic acid and subsequently positive blood cultures he was maintained on IV antibiotics Zosyn and Levaquin he was seen by Dr. Anderson and underwent laparoscopic cholecystectomy. Blood culture results were positive for E. coli patient was seen by Dr. SAMANO and infectious disease consultation he was kept on Zosyn and Levaquin during this hospitalization recommendation at discharge were to keep patient on Cipro 500 mg twice daily for 10 days Patient was doing well he was discharged in good condition he will be followed by his primary care physician Dr. King he will also be followed by Dr. Samano as outpatient Patient Condition at Discharge: Fair Plan - Discharge Summary New Discharge Prescriptions: Ciprofloxacin HCl [Cipro] 500 mg PO Q12HR #30 tablet HYDROcodone/APAP 7.5-325MG [[place] 7.5-325] 1 tab PO Q6HR PRN #28 tab PRN Reason: Pain Tamsulosin [Flomax] 0.4 mg PO BID #60 cap.er.24h Discharge Medication List Cholecalciferol [Vitamin D3] 2,000 unit PO DAILY 01/27/16 [History] [place] 1 tab PO DIRECTED 01/27/16 [History] Lecithin, Soy [Lecithin] 400 mg PO DAILY 01/27/16 [History] HYDROcodone/APAP 7.5-325MG [[place] 7.5-325] 1 tab PO Q6HR PRN #28 tab 12/10/16 [ Rx] Ciprofloxacin HCl [Cipro] 500 mg PO Q12HR #30 tablet 12/12/16 [Rx] Loratadine [Claritin] 10 mg PO DAILY tab 12/12/16 [Rx] Tamsulosin [Flomax] 0.4 mg PO BID #60 cap.er.24h 12/12/16 [Rx] Follow up Appointment(s)/Referral(s): [facility], [NON-STAFF] - Margarito King MD [Primary Care Provider] - 1-2 days Dayday Samano MD [STAFF PHYSICIAN] - 1 Week Rikki Leon MD [STAFF PHYSICIAN] - 1 Week Patient Instructions/Handouts: *Surgery [facility] - Laparoscopic Cholecystectomy Discharge Instructions Activity/Diet/Wound Care/Special Instructions: No heavy lifting, pushing, or pulling items greater than 10 pounds. Low fat diet Shower daily, no soaking in bath tubs, pools, or hot tubs. No driving while taking pain medication. Notify surgeon with any signs or symptoms of infection, increased pain, or not tolerating diet.
== END 2016-12-12 18:17 | disposition home health service (06) | DRG 854 ==
LOC: EC 14:15 → 6ICU 21:07 → 4MS4W 12-08 13:09
PROVIDERS: ADMIT Internal Medicine; ATTEND Internal Medicine
PROC: 0FT44ZZ Resection of Gallbladder, Percutaneous Endoscopic Approach (ICD-10-PCS; principal; 2016-12-07 11:55)
DX: A41.51 Sepsis due to Escherichia coli [E. coli] (principal); K80.00 Calculus of gallbladder with acute cholecystitis without obstruction; E87.2 Acidosis; I44.7 Left bundle-branch block, unspecified; J98.11 Atelectasis; E78.5 Hyperlipidemia, unspecified; E87.6 Hypokalemia; E83.39 Other disorders of phosphorus metabolism; Z87.891 Personal history of nicotine dependence; Z85.828 Personal history of other malignant neoplasm of skin; E83.42 Hypomagnesemia; I10 Essential (primary) hypertension; R33.8 Other retention of urine; Z79.899 Other long term (current) drug therapy
CPT/HCPCS: 36415; 71010; 74177; 76705; 80048; 80053; 81001; 82533; 82550; 82553; 83605; 83735; 84100; 84484; 85025; 85610; 85730; 87040; 87077; 87086; 87186; 87502; 88304; 93005; 94660; 94760; 96361; 96365; 96366; 96367; 96375; 99285

== ENCOUNTER → 2017-04-12 | Outpatient (CLI) | payer MEDICARE, BC ==
[2017-04-12 11:52] LABS: Basophils % (A) 1 %; CH 30.6; CHCM 34.1; Eosinophils # (A) 0.2 k/uL (0-0.7); Eosinophils % (A) 2 %; HCT 49.4 % (39.0-53.0); HDW 2.76; HGB 16.1 gm/dL (13.0-17.5); Luc # (Auto) 0.14; Luc % (Auto) 2; Lymphocytes # (A) 2.2 k/uL (1.0-4.8); Lymphocytes % (A) 34 %; MCH 29.3 pg (25.0-35.0); MCHC 32.5 g/dL (31.0-37.0); MCV 90.1 fL (80.0-100.0); Mean Platelet Volume 7.6; Monocytes # (A) 0.5 k/uL (0-1.0); Monocytes % (A) 7 %; Neutrophils # (A) 3.5 k/uL (1.3-7.7); Neutrophils % (A) 54 %; RBC 5.48 m/uL (4.30-5.90); RDW 14.6 % (11.5-15.5); WBC 6.5 k/uL (3.8-10.6); WBC (Perox) 6.65
[2017-04-12 12:14] LABS: ALT 28 U/L (21-72); AST 21 U/L (17-59); Alkaline Phosphatase 84 U/L (38-126); Anion Gap 9 mmol/L; Blood Urea Nitrogen 14 mg/dL (9-20); Calcium 9.5 mg/dL (8.4-10.2); Carbon Dioxide 29 mmol/L (22-30); Chloride 103 mmol/L (98-107); Cholesterol 188 mg/dL (<200); Glucose 95 mg/dL (74-99); HDL Cholesterol 36 mg/dL (40-60); Non-African American GFR(MDRD) >60 (>60 ml/min/1.73 sqM); Potassium 4.6 mmol/L (3.5-5.1); Sodium 141 mmol/L (137-145); Total Bilirubin 0.7 mg/dL (0.2-1.3); Triglycerides 249 mg/dL (<150)
== END | disposition home or self-care (01) ==
LOC: LABWHC1 10:54
PROVIDERS: ATTEND Internal Medicine
DX: E55.9 Vitamin D deficiency, unspecified (principal); E78.2 Mixed hyperlipidemia; R73.09 Other abnormal glucose; Z12.5 Encounter for screening for malignant neoplasm of prostate
CPT/HCPCS: 80061; 80053; 84443; 85025; 82306; 36415; G0103

== ENCOUNTER 2017-12-17 18:25 | Emergency (ER) | payer MEDICARE, BC ==
[2017-12-17 19:00] VITALS: BP 128/71; PULSE 73; RESP 18; TEMP 97.9
--- NOTE | 2017-12-17 19:40 | XR ---
PROCEDURE: XR hand complete LT 3 views DATE AND TIME: 12/17/2017 7:20 PM REFERRING PHYSICIAN: Tana Eid CLINICAL INDICATION: PHH, Pain TECHNIQUE: Department protocol. COMPARISON: None FINDINGS: There is medial dislocation of the fifth finger at the proximal interphalangeal joint. No d efinite fracture. 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 IMPRESSION: Fifth finger dislocation evident.
[2017-12-17] MEDS ORDERED: KETOROLAC 30 MG/ML 1 ML VIAL IM STA (20:00)
--- NOTE | 2017-12-17 20:09 | ED ---
General Adult HPI - General Chief complaint: Extremity Injury, Upper Stated complaint: Finger injury Time Seen by Provider: 12/17/17 19:47 Source: patient, RN notes reviewed Mode of arrival: ambulatory Limitations: no limitations - History of Present Illness Initial comments: 77-year-old male presents emergency Department chief complaint of left finger dislocation. He slipped and fell on the ice landing onto his left hand and fingers dislocated. Patient states it hurts to touch or movement. Patient states there is been no other symptoms. He denies any other injuries. Denies any head trauma. He states the fall was a simple trip and fall.Patient denies any recent fever, chills, shortness of breath, chest pain, back pain, abdominal pain, nausea vomiting, numbness or tingling, dysuria or hematuria, constipation or diarrhea, headaches or visual changes, or any other current symptoms. - Related Data Home Medications Medication Instructions Recorded Confirmed Cholecalciferol [Vitamin D3] 2,000 unit PO DAILY 01/27/16 12/06/16 [place] 1 tab PO DIRECTED 01/27/16 12/06/16 Lecithin, Soy [Lecithin] 400 mg PO DAILY 01/27/16 12/06/16 Previous Rx's Medication Instructions Recorded HYDROcodone/APAP 7.5-325MG [[place] 1 tab PO Q6HR PRN #28 tab 12/10/16 7.5-325] Ciprofloxacin HCl [Cipro] 500 mg PO Q12HR #30 tablet 12/12/16 Loratadine [Claritin] 10 mg PO DAILY tab 12/12/16 Tamsulosin [Flomax] 0.4 mg PO BID #60 cap.er.24h 12/12/16 Allergies Allergy/AdvReac Type Severity Reaction Status Date / Time No Known Allergies Allergy Verified 12/17/17 18:59 Review of Systems ROS Statement: Those systems with pertinent positive or pertinent negative responses have been documented in the HPI. ROS Other: All systems not noted in ROS Statement are negative. Past Medical History Past Medical History: Cancer, Hyperlipidemia Additional Past Medical History / Comment(s): "low BP", environmental allergies , hx skin cancer History of Any Multi-Drug Resistant Organisms: None Reported Past Surgical History: Adenoidectomy, Tonsillectomy Past Anesthesia/Blood Transfusion Reactions: No Reported Reaction Past Psychological History: No Psychological Hx Reported Smoking Status: Former smoker Past Alcohol Use History: None Reported Past Drug Use History: None Reported - Past Family History Mother Family Medical History: Cancer Brother(s) Family Medical History: Cancer General Exam - General Exam Comments Initial Comments: General: The patient is awake and alert, in no distress, and does not appear acutely ill. Neck: The neck is supple, there is no tenderness. Cardiovascular: There is a regular rate and rhythm. No murmur, rub or gallop is appreciated. Respiratory: Lungs are clear to auscultation, respirations are non-labored, breath sounds are equal. No wheezes, stridor, rales, or rhonchi. Musculoskeletal: Sensation intact with 2+ pulses. Left upper x-ray. Fund motion of left wrist and left hand besides pinky finger that does have an obvious deformity at the PIP joint. No swelling Neurological: CN II-XII intact, There are no obvious motor or sensory deficits. Coordination appears grossly intact. Speech is normal. Skin: Skin is warm and dry and no rashes or lesions are noted. Psychiatric: Normal mood and affect. Limitations: no limitations Course Vital Signs 12/17/17 18:57 Temperature 97.9 F Pulse Rate 73 Respiratory 18 Rate Blood Pressure 128/71 O2 Sat by Pulse 96 Oximetry Procedures - Orthopedic Joint Reduction Joint #1 Consent Obtained: verbal consent Time Out Performed: Yes Side: left Joint Reduction Location: finger Analgesia: none Technique Used: direct manipulation Post-Reduction Neuro Exam: intact Post-Reduction Vascular Exam: intact Post Reduction X-Ray Obtained: Yes Post Reduction X-Ray Results: reduced Splint Applied: Yes Patient Tolerated Procedure: well - Orthopedic Splinting/Casting Injury #1 Side: left Upper Extremity Injury Location: finger Upper Extremity Immobilizer: aluminum form splint Medical Decision Making - Medical Decision Making 77-year-old male presents for left finger dislocation. This time he underwent relocation. Patient tolerated well. At this time we discussed detention. We discussed follow-up return parameters all questions. Patient stated the Simone is given plan. This patient will be discharged. - Radiology Data Radiology results: report reviewed, image reviewed Disposition Clinical Impression: Dislocation of left little finger Disposition: HOME SELF-CARE Condition: Stable Instructions: Finger Dislocation (ED) Additional Instructions: Please use medication as discussed. Please follow up with family doctor if symptoms have not improved over the next two days. Please return to the emergency room if your symptoms increase or worsen or for any other concerns. Referrals: Margarito King MD [Primary Care Provider] - 1-2 days Arsenio Delgado MD [STAFF PHYSICIAN] - 1-2 days Time of Disposition: 21:00
--- NOTE | 2017-12-17 20:54 | XR ---
PROCEDURE: XR LT fifth finger-3 views DATE AND TIME: 12/17/2017 8:25 PM REFERRING PHYSICIAN: Tana Eid CLINICAL INDICATION: PHH, Pain TECHNIQUE: Department protocol. COMPARISON: Left hand views 12/17/2017 at 7:15 PM. FINDINGS: There has been interval reduction of the dislocation previously seen at the fifth proximal interphalangeal joint. No definite fracture is evident. IMPRESSION: Interval reduction.
== END 2017-12-17 21:10 | disposition home or self-care (01) ==
LOC: EC 18:25
DX: S63.287A Dislocation of proximal interphalangeal joint of left little finger, initial encounter (principal); E78.5 Hyperlipidemia, unspecified; Z85.828 Personal history of other malignant neoplasm of skin; Z87.891 Personal history of nicotine dependence; Z79.899 Other long term (current) drug therapy; W00.0XXA Fall on same level due to ice and snow, initial encounter
CPT/HCPCS: 73130; 73140; 99283; 26770; 96372; J1885

== ENCOUNTER → 2018-04-28 | Outpatient (CLI) | payer MEDICARE, BC ==
[2018-04-28 11:36] LABS: ALT 30 U/L (21-72); AST 23 U/L (17-59); Albumin 4.1 g/dL (3.5-5.0); Alkaline Phosphatase 76 U/L (38-126); Anion Gap 10 mmol/L; Blood Urea Nitrogen 16 mg/dL (9-20); Calcium 9.3 mg/dL (8.4-10.2); Carbon Dioxide 29 mmol/L (22-30); Chloride 99 mmol/L (98-107); Cholesterol 170 mg/dL (<200); Glucose 96 mg/dL (74-99); HDL Cholesterol 36 mg/dL (40-60); LDL Cholesterol,Calculated 94 mg/dL (0-99); Potassium 4.4 mmol/L (3.5-5.1); Sodium 138 mmol/L (137-145); Total Bilirubin 0.9 mg/dL (0.2-1.3); Total Protein 6.6 g/dL (6.3-8.2); Triglycerides 198 mg/dL (<150)
[2018-04-28 11:40] LABS: HCT 44.5 % (39.0-53.0); HGB 15.4 gm/dL (13.0-17.5); MCHC 34.6 g/dL (31.0-37.0); MCV 86.9 fL (80.0-100.0); Mean Platelet Volume 7.2; Platelet Count 145 k/uL (150-450); RBC 5.12 m/uL (4.30-5.90); RDW 13.7 % (11.5-15.5); WBC 5.7 k/uL (3.8-10.6)
[2018-04-28 12:06] LABS: Prostate Specific Antigen 5.84 ng/mL (0.00-4.00)
[2018-04-28 12:39] LABS: Erythrocyte Sedimentation Rate 6 mm/hr (0-15)
== END | disposition home or self-care (01) ==
LOC: LABWHC1 10:03
PROVIDERS: ATTEND Internal Medicine
DX: I10 Essential (primary) hypertension (principal)
CPT/HCPCS: 36415; 80053; 80061; 84153; 84443; 85027; 85652

== ENCOUNTER 2018-06-27 20:22 | Observation (INO) | payer MEDICARE, BC ==
--- NOTE | 2018-06-27 21:12 | ED ---
Chest Pain HPI - General Chief Complaint: Chest Pain Stated Complaint: Chest Pain Time Seen by Provider: 06/27/18 21:09 Source: patient, family Mode of arrival: wheelchair Limitations: no limitations - History of Present Illness Initial Comments: This patient is a 77-year-old man who complains of substernal chest pain. He states that this started approximately 90 minutes before he came in the hospital. He states that he had been walking the dog but the pain did not come on while he was doing that, he was sitting down watching television afterwards and he states that is when the pain developed. He describes it as moderately severe, constant, but is unable to further characterize it. He has not noted anything that makes the pain get better or worse. He states that it does feel like it's limiting him from taking a deep breath however. Patient denies diaphoresis, palpitations, lightheadedness or syncope, nausea or vomiting. She states that he has not filled dyspneic at rest. MD Complaint: chest pain Onset/Timin -: minutes(s) Onset: during rest Pain Location: substernal Pain Radiation: none Severity: moderate Quality: other (Unable to characterize) Consistency: constant Improves With: nothing Worsens With: nothing Treatments Prior to Arrival: none - Related Data Home Medications Medication Instructions Recorded Confirmed Cholecalciferol [Vitamin D3] 2,000 unit PO DAILY 01/27/16 06/27/18 [place] 2 tab PO DIRECTED 01/27/16 06/27/18 Lecithin, Soy [Lecithin] 400 mg PO DAILY 01/27/16 06/27/18 Previous Rx's Medication Instructions Recorded Tamsulosin [Flomax] 0.4 mg PO BID #60 cap.er.24h 12/12/16 Allergies Allergy/AdvReac Type Severity Reaction Status Date / Time No Known Allergies Allergy Verified 06/27/18 20:27 Review of Systems ROS Statement: Those systems with pertinent positive or pertinent negative responses have been documented in the HPI. ROS Other: All systems not noted in ROS Statement are negative. Constitutional: Denies: fever, chills Respiratory: Denies: cough, dyspnea Cardiovascular: Reports: chest pain. Denies: palpitations, dyspnea on exertion , orthopnea, edema, syncope Gastrointestinal: Denies: abdominal pain, nausea, vomiting, melena, hematochezia Genitourinary: Denies: dysuria, hematuria Musculoskeletal: Denies: back pain Skin: Denies: rash Neurological: Denies: headache, weakness, numbness EKG Findings - EKG Comments: EKG Findings:: The EKG is similar to comparison from 12/06/2016 - EKG Results: EKG: interpreted by FABRICIO, sinus rhythm (Rate 87 bpm), normal ST/T, no acute changes - Blocks, Porter, Hypertrophy, ST Abn: AV and intraventricular conduction: left bundle branch block (fixed/intermittent , complete/incomplete) QRS axis and voltage: left axis deviation (-30 to -90) Past Medical History Past Medical History: Cancer, Hyperlipidemia Additional Past Medical History / Comment(s): "low BP", environmental allergies , hx skin cancer History of Any Multi-Drug Resistant Organisms: None Reported Past Surgical History: Adenoidectomy, Tonsillectomy Past Anesthesia/Blood Transfusion Reactions: No Reported Reaction Past Psychological History: No Psychological Hx Reported Smoking Status: Never smoker Past Alcohol Use History: None Reported Past Drug Use History: None Reported - Past Family History Mother Family Medical History: Cancer Brother(s) Family Medical History: Cancer General Exam Limitations: no limitations General appearance: alert, in no apparent distress Head exam: Present: atraumatic, normocephalic Eye exam: Present: normal appearance. Absent: scleral icterus, conjunctival injection ENT exam: Present: normal oropharynx Respiratory exam: Present: normal lung sounds bilaterally, chest wall tenderness. Absent: respiratory distress, wheezes, rales, rhonchi, stridor Cardiovascular Exam: Present: regular rate, normal rhythm, normal heart sounds. Absent: systolic murmur, diastolic murmur, rubs, gallop GI/Abdominal exam: Present: soft. Absent: distended, tenderness, guarding, rebound, rigid, mass Extremities exam: Present: normal inspection, normal capillary refill. Absent: pedal edema, calf tenderness Back exam: Present: normal inspection. Absent: CVA tenderness (R), CVA tenderness (L) Neurological exam: Present: alert Skin exam: Present: warm, dry, intact, normal color. Absent: rash Course Vital Signs 06/27/18 06/27/18 06/27/18 20:25 20:43 21:58 Temperature 98.7 F Pulse Rate 92 82 Pulse Rate [ 98 Bilateral Sitting Radial] Respiratory 20 18 20 Rate Blood Pressure 141/82 121/71 O2 Sat by Pulse 97 97 Oximetry 06/27/18 06/27/18 22:24 23:34 Temperature Pulse Rate 84 84 Pulse Rate [ Bilateral Sitting Radial] Respiratory 18 18 Rate Blood Pressure 123/71 104/65 O2 Sat by Pulse 97 95 Oximetry Disposition Clinical Impression: Chest pain Disposition: ADMITTED IP TO THIS HOSP Condition: Fair Referrals: Margarito King MD [Primary Care Provider] - 1-2 days
[2018-06-27] MEDS ORDERED: MORPHINE SULFATE 4 MG/ML SYRINGE IV STA (21:23)
[2018-06-27] MEDS ORDERED: ONDANSETRON 4 MG/2 ML VIAL IVP STA (21:45)
[2018-06-27 21:50] LABS: Basophils % (A) 0 %; Eosinophils # (A) 0.1 k/uL (0-0.7); Eosinophils % (A) 1 %; HCT 48.2 % (39.0-53.0); HGB 16.2 gm/dL (13.0-17.5); Lymphocytes # (A) 1.6 k/uL (1.0-4.8); Lymphocytes % (A) 12 %; MCH 29.4 pg (25.0-35.0); MCHC 33.7 g/dL (31.0-37.0); MCV 87.3 fL (80.0-100.0); Mean Platelet Volume 7.4; Monocytes # (A) 0.6 k/uL (0-1.0); Monocytes % (A) 5 %; Neutrophils # (A) 10.4 k/uL (1.3-7.7); Neutrophils % (A) 81 %; Platelet Count 175 k/uL (150-450); RBC 5.51 m/uL (4.30-5.90); RDW 13.5 % (11.5-15.5); WBC 12.9 k/uL (3.8-10.6)
[2018-06-27] MEDS ORDERED: SODIUM CHLORIDE 0.9% 1,000 ML IV ONE (21:53)
[2018-06-27 21:58] LABS: ALT 31 U/L (21-72); AST 22 U/L (17-59); Albumin 4.3 g/dL (3.5-5.0); Alkaline Phosphatase 77 U/L (38-126); Anion Gap 11 mmol/L; Blood Urea Nitrogen 19 mg/dL (9-20); Calcium 9.5 mg/dL (8.4-10.2); Carbon Dioxide 29 mmol/L (22-30); Chloride 98 mmol/L (98-107); Glucose 137 mg/dL (74-99); Magnesium 1.9 mg/dL (1.6-2.3); Potassium 4.2 mmol/L (3.5-5.1); Sodium 138 mmol/L (137-145); Total Bilirubin 0.6 mg/dL (0.2-1.3); Total Protein 7.1 g/dL (6.3-8.2)
[2018-06-27 22:01] LABS: Creatine Kinase 61 U/L (55-170)
[2018-06-27 22:11] LABS: Partial Thromboplastin Time 20.8 sec (22.0-30.0)
[2018-06-27 22:14] LABS: Creatine Kinase MB 1.2 ng/mL (0.0-2.4); Troponin I <0.012 ng/mL (0.000-0.034)
--- NOTE | 2018-06-27 22:14 | XR ---
EXAMINATION TYPE: XR chest 1V portable DATE OF EXAM: 06/27/2018 COMPARISON: 12/08/2016 HISTORY: Chest pain TECHNIQUE: Single frontal view of the chest is obtained. FINDINGS: There is no heart failure nor confluent pneumonic infiltrate. There is slight blunting of left costophrenic angle. There are chest leads. Thoracic aorta is atheromatous. IMPRESSION: Minimal pleural reaction at the left lung bases probably new compared to old exam. There is clearing of atelectasis at the right lung base compared to old exam. No heart failure.
[2018-06-27 23:34] VITALS: RESP 18
[2018-06-27 23:52] LABS: D-Dimer 1.3 mg/L FEU (<0.60)
--- NOTE | 2018-06-28 00:47 | CT ---
EXAMINATION TYPE: CT chest angio for PE DATE OF EXAM: 06/28/2018 COMPARISON: None HISTORY: chest pain;SOB and elevated D-dimer CT DLP: 512.70 mGycm Automated exposure control for dose reduction was used. CONTRAST: CT Chest for pulmonary embolism performed with with IV Contrast, patient injected with 75 mL of Isovu e 370. FINDINGS: There are 3-D post processed images. There is patchy linear density at the lung bases. There is no pleural effusion. There is no pericardi al effusion. There is no mediastinal adenopathy. There are no hilar masses. There is normal contrast opacification of the pulmonary arteries. There are no filling defects. There is mild 4 cm aneurysm of the ascending aorta. There is no evidence of dissection. IMPRESSION: No evidence of pulmonary embolism. 4 cm aneurysm of ascending aorta. Mild infiltrates and atelectasis at the posterior lung bases.
[2018-06-28] MEDS ORDERED: NITROGLYCERIN SL TABS 0.4 MG TAB SUBLINGUAL PRN (01:11)
[2018-06-28 02:14] VITALS: BMI 26.2
[2018-06-28 03:49] LABS: Creatine Kinase 49 U/L (55-170)
[2018-06-28 04:02] LABS: Troponin I <0.012 ng/mL (0.000-0.034)
--- NOTE | 2018-06-28 08:08 | P.CRDCN ---
History of Present Illness Consult date: 06/28/18 Requesting physician: Luisa Fletcher Consult reason: chest pain Chief complaint: Chest pain History of present illness: This is a pleasant 77-year-old gentleman with no prior documented history of hypertension, no diabetes, mild hyperlipidemia, nonsmoker, family history of premature coronary artery disease in his father and father's brothers. He presents to the hospital with symptoms of chest discomfort. He states that he was just sitting and resting, about discomfort in his right shoulder blade and back area that radiated across through to his chest and across his chest. He denies any associated shortness of breath, but states that it felt hard to take a deep breath. No diaphoresis or nausea. Chest x- ray on admission revealed minimal pleural reaction at the left lung bases probably new as compared with old exam. CT of the chest was performed which did not reveal evidence of pulmonary embolism. 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 Mild infiltrates and atelectasis at the posterior lung bases. His EKG shows normal sinus rhythm with a left bundle-branch block pattern and nonspecific ST-T wave changes. As compared with the prior EKG performed in 2012, the left bundle branch block appears to be new. Blood pressure on admission 140/80 with a heart rate in the 90s, 97% on room air. At pressure this morning 104/58, heart rate in the 70s, 97% on 2 L of oxygen. White blood cell count is normal, hemoglobin 16.2, platelet count 175. D-dimer 1.3, sodium 138, potassium 4.2, BUN 19, creatinine 0.9, magnesium 1.9. Troponins are negative 2. At the time of my examination this morning, he still states he has a mild ache in his chest which has been persistent since it started yesterday afternoon. Past Medical History Past Medical History: Cancer, Hyperlipidemia, Osteoarthritis (OA), Respiratory Disorder Additional Past Medical History / Comment(s): "low BP", environmental allergies , hx skin , allergies to mold, fungi History of Any Multi-Drug Resistant Organisms: None Reported Past Surgical History: Adenoidectomy, Cholecystectomy, Tonsillectomy Additional Past Surgical History / Comment(s): skin cancer removed Past Anesthesia/Blood Transfusion Reactions: No Reported Reaction Past Psychological History: No Psychological Hx Reported Smoking Status: Never smoker Past Alcohol Use History: None Reported Additional Past Alcohol Use History / Comment(s): quit smoking 1960's, used pipe or cigars -"some day" smoker Past Drug Use History: None Reported - Past Family History Mother Family Medical History: Cancer Brother(s) Family Medical History: Cancer Father Additional Family Medical History / Comment(s): heart problems Medications and Allergies Home Medications Medication Instructions Recorded Confirmed Type Cholecalciferol [Vitamin D3] 2,000 unit PO DAILY 01/27/16 06/27/18 History [place] 2 tab PO DIRECTED 01/27/16 06/27/18 History Lecithin, Soy [Lecithin] 400 mg PO DAILY 01/27/16 06/27/18 History Tamsulosin [Flomax] 0.4 mg PO BID #60 cap.er.24h 12/12/16 06/27/18 Rx Allergies Allergy/AdvReac Type Severity Reaction Status Date / Time No Known Allergies Allergy Verified 06/27/18 20:27 Physical Exam Vitals: Vital Signs Temp Pulse Pulse Pulse Resp BP BP 06/28/18 07:53 79 06/28/18 04:00 98.3 F 79 18 104/58 06/28/18 02:31 98.5 F 86 18 147/88 06/28/18 01:54 98.5 F 86 18 147/88 06/28/18 01:25 97.9 F 78 18 122/74 06/27/18 23:34 84 18 104/65 06/27/18 22:24 84 18 123/71 06/27/18 21:58 82 20 121/71 06/27/18 20:43 98 18 06/27/18 20:25 98.7 F 92 20 141/82 Pulse Ox 06/28/18 07:53 06/28/18 04:00 97 06/28/18 02:31 97 06/28/18 01:54 97 06/28/18 01:25 97 06/27/18 23:34 95 06/27/18 22:24 97 06/27/18 21:58 97 06/27/18 20:43 06/27/18 20:25 97 Intake and Output 06/27/18 06/28/18 06/28/18 22:59 06:59 14:59 Other: Weight 90.718 kg 90.3 kg PHYSICAL EXAMINATION: GENERAL: 77-year-old gentleman in no acute distress at the time of my examination HEENT: Head is atraumatic, normocephalic. Pupils equal, round. Sclera anicteric. Conjunctiva are clear. Mucous membranes of the mouth are moist. Neck is supple. There is no elevated jugular venous pressure.] bruit is heard. HEART EXAMINATION: Heart S1, S2 normal. No murmur or gallop heard. CHEST EXAMINATION: Lungs are clear to auscultation and precussion. No chest wall tenderness is noted on palpation or with deep breathing. ABDOMEN: Soft, nontender. Bowel sounds are heard. No organomegaly noted. EXTREMITIES: 2+ peripheral pulses with no evidence of peripheral edema and no calf tenderness noted. NEUROLOGIC patient is awake, alert and oriented ?-3. . Results 06/27/18 21:42 06/27/18 21:42 Cardiac Enzymes 06/27/18 06/27/18 06/28/18 Range/Units 21:42 21:42 03:15 AST 22 (17-59) U/L CK-MB (CK-2) 1.2 1.0 (0.0-2.4) ng/mL Troponin I <0.012 <0.012 (0.000-0.034) ng/mL Coagulation 06/27/18 Range/Units 21:42 PT 10.0 (9.0-12.0) sec APTT 20.8 L (22.0-30.0) sec CBC 06/27/18 Range/Units 21:42 WBC 12.9 H (3.8-10.6) k/uL RBC 5.51 (4.30-5.90) m/uL Hgb 16.2 (13.0-17.5) gm/dL Hct 48.2 (39.0-53.0) % Plt Count 175 (150-450) k/uL Comprehensive Metabolic Panel 06/27/18 Range/Units 21:42 Sodium 138 (137-145) mmol/L Potassium 4.2 (3.5-5.1) mmol/L Chloride 98 (98-107) mmol/L Carbon Dioxide 29 (22-30) mmol/L BUN 19 (9-20) mg/dL Creatinine 0.90 (0.66-1.25) mg/dL Glucose 137 H (74-99) mg/dL Calcium 9.5 (8.4-10.2) mg/dL AST 22 (17-59) U/L ALT 31 (21-72) U/L Alkaline Phosphatase 77 (38-126) U/L Total Protein 7.1 (6.3-8.2) g/dL Albumin 4.3 (3.5-5.0) g/dL Current Medications Generic Name Dose Route Start Last Admin Trade Name Freq PRN Reason Stop Dose Admin Aspirin 325 mg 06/29/18 09:00 Aspirin PO DAILY KACY Nitroglycerin 0.4 mg 06/28/18 01:11 Nitrostat SUBLINGUAL Q5M PRN Chest Pain Intake and Output 06/27/18 06/28/18 06/28/18 22:59 06:59 14:59 Other: Weight 90.718 kg 90.3 kg 06/27/18 21:42 06/27/18 21:42 EKG Interpretations (text) EKG shows a normal sinus rhythm with a left bundle-branch block pattern and nonspecific ST-T wave changes Assessment and Plan Plan: Assessment and plan #1 chest discomfort, with some atypical features for acute coronary syndrome. Troponins are negative 2. EKG shows a normal sinus rhythm with a left bundle- branch block pattern that appears to be new and prior EKGs which were reviewed. CTA of the chest negative for pulmonary embolism, it does show evidence of a 4 cm aortic aneurysm #2 cardiac risk factors negative for hypertension, no diabetes, mild hyperlipidemia per the patient, nonsmoker. #3 environmental ALLERGIES Plan We will obtain a third troponin value. We will also request an echocardiogram with Doppler study be performed. Further recommendations to follow. DNP note has been reviewed, I agree with a documented findings and plan of care. Patient was seen and examined.
[2018-06-28 10:06] LABS: Creatine Kinase 44 U/L (55-170)
[2018-06-28 10:20] LABS: Creatine Kinase MB 0.8 ng/mL (0.0-2.4); Troponin I <0.012 ng/mL (0.000-0.034)
--- NOTE | 2018-06-28 11:45 | P.HPIM ---
History of Present Illness H&P Date: 06/28/18 Kevin Garcia is a 77-year-old male who presented to [facility] emergency room with a chief complaint of chest pain. Patient describes a severe pain that started behind his right shoulder blade and moved up to the middle of his chest, patient stated that he could not get comfortable , he denies any associated nausea vomiting or diaphoresis, there was some shortness of breath with his chest pain he felt he was unable to take a deep breath. His pain was worsening, and he decided to come to emergency room, he was evaluated in the emergency room EKG and cardiac enzymes were negative, d-dimer was elevated at 1.30 patient underwent a computed tomography scan angiogram of the chest which revealed evidence of ascending aortic aneurysm of 4 cm, there was no evidence of pulmonary embolism. He was admitted to telemetry floor for further evaluation and treatment cardiology consultation was requested. Patient states that 2 years ago he hasn't a stress test which was negative. Patient has known history of hypertension, hyperlipidemia, and family history of coronary artery disease. Past Medical History Past Medical History: Cancer, Hyperlipidemia, Osteoarthritis (OA), Respiratory Disorder Additional Past Medical History / Comment(s): "low BP", environmental allergies , hx skin , allergies to mold, fungi History of Any Multi-Drug Resistant Organisms: None Reported Past Surgical History: Adenoidectomy, Cholecystectomy, Tonsillectomy Additional Past Surgical History / Comment(s): skin cancer removed Past Anesthesia/Blood Transfusion Reactions: No Reported Reaction Past Psychological History: No Psychological Hx Reported Smoking Status: Never smoker Past Alcohol Use History: None Reported Additional Past Alcohol Use History / Comment(s): quit smoking 1959', used pipe or cigars -"some day" smoker Past Drug Use History: None Reported - Past Family History Mother Family Medical History: Cancer Brother(s) Family Medical History: Cancer Father Additional Family Medical History / Comment(s): heart problems Medications and Allergies Home Medications Medication Instructions Recorded Confirmed Type Cholecalciferol [Vitamin D3] 2,000 unit PO DAILY 01/27/16 06/28/18 History [place] 565 mg PO BID 01/27/16 06/28/18 History Lecithin, Soy [Lecithin] 400 mg PO DAILY 01/27/16 06/28/18 History Tamsulosin [Flomax] 0.4 mg PO BID #60 cap.er.24h 12/12/16 06/28/18 Rx Allergies Allergy/AdvReac Type Severity Reaction Status Date / Time No Known Allergies Allergy Verified 06/28/18 11:22 Physical Exam Vitals: Vital Signs Temp Pulse Pulse Pulse Resp BP BP 06/28/18 08:00 98.3 F 83 18 102/62 06/28/18 07:53 79 06/28/18 04:00 98.3 F 79 18 104/58 06/28/18 02:31 98.5 F 86 18 147/88 06/28/18 01:54 98.5 F 86 18 147/88 06/28/18 01:25 97.9 F 78 18 122/74 06/27/18 23:34 84 18 104/65 06/27/18 22:24 84 18 123/71 06/27/18 21:58 82 20 121/71 06/27/18 20:43 98 18 06/27/18 20:25 98.7 F 92 20 141/82 Pulse Ox 06/28/18 08:00 94 L 06/28/18 07:53 06/28/18 04:00 97 06/28/18 02:31 97 06/28/18 01:54 97 06/28/18 01:25 97 06/27/18 23:34 95 06/27/18 22:24 97 06/27/18 21:58 97 06/27/18 20:43 06/27/18 20:25 97 Intake and Output 06/27/18 06/28/18 06/28/18 22:59 06:59 14:59 Other: Weight 90.718 kg 90.3 kg Head normocephalic and atraumatic Neck supple no JVD no goiter Lungs clear to auscultation bilaterally no wheezing or crackles Heart regular rate and rhythm S1-S2, no rub or gallop Abdomen is soft nontender nondistended positive bowel sounds no hepatosplenomegaly Extremities no edema no cyanosis or clubbing Neuro alert and orientated to 3 Results CBC & Chem 7: 06/27/18 21:42 06/27/18 21:42 Labs: Abnormal Lab Results - Last 24 Hours (Table) 06/27/18 06/27/18 06/27/18 Range/Units 21:42 21:42 21:42 WBC 12.9 H (3.8-10.6) k/uL Neutrophils # 10.4 H (1.3-7.7) k/uL APTT 20.8 L (22.0-30.0) sec D-Dimer 1.30 H (<0.60) mg/L FEU Glucose 137 H (74-99) mg/dL Total Creatine Kinase (55-170) U/L 06/28/18 06/28/18 Range/Units 03:15 09:32 WBC (3.8-10.6) k/uL Neutrophils # (1.3-7.7) k/uL APTT (22.0-30.0) sec D-Dimer (<0.60) mg/L FEU Glucose (74-99) mg/dL Total Creatine Kinase 49 L 44 L (55-170) U/L Thrombosis Risk Factor Assmnt - Choose All That Apply Each Risk Factor Represents 3 Points: Age 75 years or older Thrombosis Risk Factor Assessment Total Risk Factor Score: 3 Thrombosis Risk Factor Assessment Level: Moderate Risk Assessment and Plan Plan: #1 episode of chest pain lasting several hours, patient describes severe pain that started behind his right shoulder blade and removed to the middle of the chest, associated with difficulty breathing, so far cardiac enzymes are negative computed tomography scan angiogram of the chest negative for pulmonary embolism, cardiology consultation was requested. #2 underlying history of hypertension well-controlled continue current medications #3 underlying history of hyperlipidemia #4 underlying history of benign prostatic hypertrophy resume Flomax #5 evidence of ascending aortic aneurysm on computed tomography scan angiogram of the chest measuring 4 cm At this time patient has improved, serial EKGs and cardiac enzymes did not reveal any evidence of acute myocardial infarction Awaiting echo cardiogram, awaiting repeat stress test either as inpatient or outpatient Cardiology are following
[2018-06-28] MEDS: CHOLECALCIFEROL 1,000 UNIT TAB PO SCH (11:54)
[2018-06-28] MEDS: TAMSULOSIN 0.4 MG CAP.ER.24H PO SCH ×2 (11:55→22:52)
[2018-06-28] MEDS ORDERED: ASPIRIN 325 MG TAB PO STA (11:58)
[2018-06-29 03:47] LABS: Cholesterol 140 mg/dL (<200); HDL Cholesterol 31 mg/dL (40-60); LDL Cholesterol,Calculated 86 mg/dL (0-99); Triglycerides 116 mg/dL (<150)
[2018-06-29] MEDS ORDERED: ASPIRIN 325 MG TAB PO SCH (09:00)
[2018-06-29] MEDS: TAMSULOSIN 0.4 MG CAP.ER.24H PO SCH ×2 (09:15→20:09)
[2018-06-29] MEDS: CHOLECALCIFEROL 1,000 UNIT TAB PO SCH (09:15)
--- NOTE | 2018-06-29 09:21 | ECHOF ---
Referral Reason:chest pain MEASUREMENTS -------- HEIGHT: 185.4 cm WEIGHT: 90.3 kg BP: 102/62 RVIDd: 3.0 cm (< 3.3) IVSd: 1.1 cm (0.6 - 1.1) LVIDd: 3.9 cm (3.9 - 5.3) LVPWd: 1.0 cm (0.6 - 1.1) IVSs: 1.6 cm LVIDs: 2.1 cm LVPWs: 1.5 cm LAESV Index (A-L): 14.95 ml/m Ao Diam: 3.6 cm (2.0 - 3.7) AV Cusp: 1.3 cm (1.5 - 2.6) LA Diam: 2.9 cm (2.7 - 3.8) EPSS: 1.0 cm MV E Shon: 0.97 m/s MV DecT: 239 ms MV A Shon: 0.96 m/s MV E/A Ratio: 1.02 AV maxP.69 mmHg AV meanP.20 mmHg RAP: 5.00 mmHg RVSP: 27.47 mmHg MV EF SLOPE: 37.87 mm/s (70 - 150) MV EXCURSION: 1.10 cm (> 18.000) FINDINGS -------- Sinus rhythm. This was a technically difficult study with suboptimal views. The left ventricular size is normal. There is borderline concentric left ventricular hypertrophy. Overall left ventricular systolic function is normal with, an EF between 55 - 60 %. The right ventricle is normal in size and function. Normal LA size by volume 22+/-6 ml/m2. The right atrium is normal in size. 3 ml of Lumason was utilized for enhancement of images. Aortic valve is trileaflet and is mildly thickened. There is no evidence of aortic regurgitation. There is mild aortic stenosis present. Peak/mean gradient across the Aortic Valve is 16.69mmHg / 1 0.20mmHg. The mitral valve leaflets are mildly thickened. Mild mitral annular calcification present. There is trace to mild mitral regurgitation. Trace tricuspid regurgitation present. Right ventricular systolic pressure is normal at < 35 mmHg. There is no evidence of pulmonary hypertension. Trace/mild (physiologic) pulmonic regurgitation. The aortic root size is normal. IVC Not well visulized. There is no pericardial effusion. CONCLUSIONS -------- 1. Sinus rhythm. 2. This was a technically difficult study with suboptimal views. 3. The left ventricular size is normal. 4. There is borderline concentric left ventricular hypertrophy. 5. Overall left ventricular systolic function is normal with, an EF between 55 - 60 %. 6. Normal LA size by volume 22+/-6 ml/m2. 7. 3 ml of Lumason was utilized for enhancement of images. 8. Aortic valve is trileaflet and is mildly thickened. 9. There is mild aortic stenosis present. 10. Peak/mean gradient across the Aortic Valve is 16.69mmHg / 10.20mmHg. 11. The mitral valve leaflets are mildly thickened. 12. Mild mitral annular calcification present. 13. There is trace to mild mitral regurgitation. 14. Trace tricuspid regurgitation present. 15. Right ventricular systolic pressure is normal at < 35 mmHg. 16. There is no evidence of pulmonary hypertension. 17. Trace/mild (physiologic) pulmonic regurgitation. 18. The aortic root size is normal. 19. IVC Not well visulized. 20. There is no pericardial effusion. DITCH TENDER: Taco Swann RDCS
--- NOTE | 2018-06-29 12:11 | P.PN ---
Subjective This is a pleasant 77 showed male seen and examined resting comfortably in bed in no acute distress. He continues to complain of a dull ache in the midsternal region. No radiation to the arm, back, neck or jaw. He denies associated shortness of breath, dizziness, palpitations, nausea, vomiting or diaphoresis. Cardiac enzymes negative 3. Blood pressure 90/57 heart rate 70 afebrile maintaining oxygen saturation on room air. EKG obtained on admission reveals left bundle branch block pattern compared to EKG performed in 2017 patient underwent cholecystectomy this seems to be consistent. Echocardiogram obtained reveals preserved left ventricular systolic function with ejection fraction 55-60%, mild aortic stenosis present with a mean gradient across the valve standpoint 20 mmHg. Objective - Vital Signs Vital signs: Vital Signs Temp 98.2 F 06/29/18 11:21 Pulse 86 06/29/18 11:21 Resp 18 06/29/18 11:21 BP 108/69 06/29/18 11:21 Pulse Ox 97 06/29/18 11:21 Intake & Output 06/28/18 06/29/18 06/29/18 18:59 06:59 18:59 Intake Total 240 280 Balance 240 280 Weight 83.8 kg Intake: Oral 240 280 Other: # Voids 1 - Exam GENERAL: Well-appearing, well-nourished and in no acute distress. NECK: Supple without JVD or thyromegaly. LUNGS: Breath sounds clear to auscultation bilaterally. Respiration equal and unlabored. No wheezes, rales or rhonchi. HEART: Regular rate and rhythm with faint systolic ejection murmur at the base, no rubs or gallops. S1 and S2 heard. EXTREMITIES: Normal range of motion, no edema. No clubbing or cyanosis. Peripheral pulses intact. - Labs CBC & Chem 7: 06/27/18 21:42 06/27/18 21:42 Labs: Abnormal Lab Results - Last 24 Hours (Table) 06/28/18 Range/Units 03:15 HDL Cholesterol 31 L (40-60) mg/dL Assessment and Plan Assessment: ASSESSMENT Chest pain, atypical. An acute coronary event has been ruled out with no EKG evidence of acute ischemia and negative cardiac enzymes. Left bundle branch block was evident 2016. Mild aortic stenosis PLAN An acute coronary event has been ruled out. Plan for Lexiscan stress test tomorrow morning. Nothing by mouth after midnight tonight. Further recommendations to follow based upon diagnostic tests findings. Nurse Practitioner note has been reviewed, I agree with a documented findings and plan of care. Patient was seen and examined.
--- NOTE | 2018-06-29 12:52 | P.PN ---
Subjective Progress Note Date: 06/29/18 Kevin Garcia is a 77-year-old male who presented to [facility] emergency room with a chief complaint of chest pain. Patient describes a severe pain that started behind his right shoulder blade and moved up to the middle of his chest, patient stated that he could not get comfortable , he denies any associated nausea vomiting or diaphoresis, there was some shortness of breath with his chest pain he felt he was unable to take a deep breath. His pain was worsening, and he decided to come to emergency room, he was evaluated in the emergency room EKG and cardiac enzymes were negative, d-dimer was elevated at 1.30 patient underwent a computed tomography scan angiogram of the chest which revealed evidence of ascending aortic aneurysm of 4 cm, there was no evidence of pulmonary embolism. He was admitted to telemetry floor for further evaluation and treatment cardiology consultation was requested. Patient states that 2 years ago he hasn't a stress test which was negative. Patient has known history of hypertension, hyperlipidemia, and family history of coronary artery disease. On 06/29/2018 patient is alert and oriented 3 in no apparent distress he denies any chest pain or shortness of breath at this time he had some chest pressure earlier this morning he was admitted to telemetry floor due to episode of chest pain, cardiac enzymes are negative, EKG reveals evidence of left bundle branch block which was present in 2017, echocardiogram reveals normal ejection fraction, with mild aortic stenosis. Plan at this time per cardiology is to continue monitoring and proceed with stress test in the morning. Objective - Vital Signs Vital signs: Vital Signs Temp 98.2 F 06/29/18 11:21 Pulse 86 06/29/18 12:00 Resp 18 06/29/18 11:21 BP 108/69 06/29/18 11:21 Pulse Ox 97 06/29/18 11:21 Intake & Output 06/28/18 06/29/18 06/29/18 18:59 06:59 18:59 Intake Total 240 280 Balance 240 280 Weight 83.8 kg Intake: Oral 240 280 Other: # Voids 1 - Exam Head normocephalic and atraumatic Neck supple no JVD no goiter Lungs clear to auscultation bilaterally no wheezing or crackles Heart regular rate and rhythm S1-S2, no rub or gallop Abdomen is soft nontender nondistended positive bowel sounds no hepatosplenomegaly Extremities no edema no cyanosis or clubbing Neuro alert and orientated to 3 - Labs CBC & Chem 7: 06/27/18 21:42 06/27/18 21:42 Labs: Abnormal Lab Results - Last 24 Hours (Table) 06/28/18 Range/Units 03:15 HDL Cholesterol 31 L (40-60) mg/dL Assessment and Plan Plan: #1 episode of chest pain lasting several hours, patient describes severe pain that started behind his right shoulder blade and removed to the middle of the chest, associated with difficulty breathing, so far cardiac enzymes are negative computed tomography scan angiogram of the chest negative for pulmonary embolism, cardiology consultation was requested. #2 underlying history of hypertension well-controlled continue current medications #3 underlying history of hyperlipidemia #4 underlying history of benign prostatic hypertrophy resume Flomax #5 evidence of ascending aortic aneurysm on computed tomography scan angiogram of the chest measuring 4 cm At this time patient has improved, serial EKGs and cardiac enzymes did not reveal any evidence of acute myocardial infarction Awaiting echo cardiogram, awaiting repeat stress test in the morning Cardiology are following
[2018-06-30] MEDS ORDERED: REGADENOSON 0.4 MG/5 ML SYRINGE IV ONE (05:00)
[2018-06-30] MEDS ORDERED: AMINOPHYLLINE 500 MG/20 ML VIAL IV PRN (06:00)
[2018-06-30 06:22] LABS: Basophils % (A) 0 %; Eosinophils # (A) 0.3 k/uL (0-0.7); Eosinophils % (A) 4 %; HCT 39.8 % (39.0-53.0); HGB 13.9 gm/dL (13.0-17.5); Lymphocytes # (A) 1.8 k/uL (1.0-4.8); Lymphocytes % (A) 21 %; MCH 30.6 pg (25.0-35.0); MCHC 34.9 g/dL (31.0-37.0); MCV 87.6 fL (80.0-100.0); Mean Platelet Volume 6.9; Monocytes # (A) 0.5 k/uL (0-1.0); Monocytes % (A) 6 %; Neutrophils # (A) 5.6 k/uL (1.3-7.7); Neutrophils % (A) 67 %; Platelet Count 131 k/uL (150-450); RBC 4.55 m/uL (4.30-5.90); RDW 13.7 % (11.5-15.5); WBC 8.4 k/uL (3.8-10.6)
[2018-06-30 06:26] LABS: ALT 29 U/L (21-72); AST 23 U/L (17-59); Albumin 3.1 g/dL (3.5-5.0); Alkaline Phosphatase 59 U/L (38-126); Anion Gap 4 mmol/L; Blood Urea Nitrogen 16 mg/dL (9-20); Calcium 8.7 mg/dL (8.4-10.2); Carbon Dioxide 30 mmol/L (22-30); Chloride 103 mmol/L (98-107); Glucose 93 mg/dL (74-99); Potassium 4.5 mmol/L (3.5-5.1); Sodium 137 mmol/L (137-145); Total Bilirubin 0.8 mg/dL (0.2-1.3); Total Protein 5.8 g/dL (6.3-8.2)
[2018-06-30] MEDS ORDERED: ASPIRIN 81 MG PO SCH (09:00)
--- NOTE | 2018-06-30 11:00 | EST ---
EXERCISE STRESS DATE OF SERVICE: 06/30/2018 AGE: 77 SEX: Male HT: 73" WT: 195 pounds PROTOCOL: Lexiscan Cardiolite STAGE: DURATION OF EXERCISE: HEART RATE REST: 66 BLOOD PRESSURE REST: 110/74 MAXIMUM HEART RATE ACHIEVED: 90 MAXIMUM BLOOD PRESSURE: 118/72 85% MPHR: 122 100% MPHR: 144 METS: INDICATIONS: Chest pain. CLINICAL INFORMATION: Baseline rhythm is sinus mechanism, rate of 66, left bundle with left axis deviation. Baseline blood pressure 110/74 mmHg. Patient received injection of Lexiscan. Electrocardiographic monitoring revealed no evidence of diagnostic ischemic ST deviation. Cardiolite was injected per protocol. CONCLUSION: 1. Nondiagnostic electrocardiograph stress testing. 2. Nuclear images will be reported separately. MMODL / IJN: [id number] /
--- NOTE | 2018-06-30 11:16 | NM ---
EXAMINATION TYPE: NM stress lexiscan cardiolite DATE OF EXAM: 06/30/2018 COMPARISON: CTA chest from 2 days ago. HISTORY: History of hypercholesterolemia and family history of coronary artery disease presents with chest pain and difficulty in breathing. TECHNIQUE: After the intravenous administration of 10.35 mCi Tc 99m Sestamibi - Cardiolite resting S PECT images acquired 45 minutes post injection. The patient received 0.4mg Lexiscan, 25.7 mCi Tc 99m Sestamibi - Stress images obtained [address] injection FINDINGS: Review of stress and rest SPECT images demonstrates no distinct perfusion abnormality. Gated analysi s shows normal wall motion with an estimated left ventricular ejection fraction of 68 %. IMPRESSION: No scintigraphic evidence for reversible ischemia.
[2018-06-30 12:01] VITALS: BP 121/79; PULSE 71; TEMP 96.1
--- NOTE | 2018-06-30 12:21 | P.PN ---
Subjective Progress Note Date: 06/30/18 This is a pleasant 77-year-old gentleman with no prior documented history of hypertension, no diabetes, mild hyperlipidemia, nonsmoker, family history of premature coronary artery disease in his father and father's brothers. He presents to the hospital with symptoms of chest discomfort. He states that he was just sitting and resting, about discomfort in his right shoulder blade and back area that radiated across through to his chest and across his chest. He denies any associated shortness of breath, but states that it felt hard to take a deep breath. No diaphoresis or nausea. Chest x- ray on admission revealed minimal pleural reaction at the left lung bases probably new as compared with old exam. CT of the chest was performed which did not reveal evidence of pulmonary embolism. 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 Mild infiltrates and atelectasis at the posterior lung bases. His EKG shows normal sinus rhythm with a left bundle-branch block pattern and nonspecific ST-T wave changes. As compared with the prior EKG performed in 2012, the left bundle branch block appears to be new. Blood pressure on admission 140/80 with a heart rate in the 90s, 97% on room air. At pressure this morning 104/58, heart rate in the 70s, 97% on 2 L of oxygen. White blood cell count is normal, hemoglobin 16.2, platelet count 175. D-dimer 1.3, sodium 138, potassium 4.2, BUN 19, creatinine 0.9, magnesium 1.9. Troponins are negative 2. At the time of my examination this morning, he still states he has a mild ache in his chest which has been persistent since it started yesterday afternoon. 06/30/2018 Patient seen and examined this morning, underwent a Lexiscan stress test today that was negative for any reversible ischemia. He denies any further chest discomfort, hemodynamically he is stable. Objective - Vital Signs Vital signs: Vital Signs Temp 96.1 F L 06/30/18 12:00 Pulse 71 06/30/18 12:00 Resp 18 06/30/18 12:00 BP 121/79 06/30/18 12:00 Pulse Ox 95 06/30/18 12:00 Intake & Output 06/29/18 06/30/18 06/30/18 18:59 06:59 18:59 Intake Total 520 20 Balance 520 20 Weight 88.8 kg 88.451 kg Intake: IV 20 .9 20 Oral 520 Other: Voiding Method Toilet Urinal # Voids 2 - Exam PHYSICAL EXAMINATION: GENERAL: 77-year-old gentleman in no acute distress at the time of my examination HEENT: Head is atraumatic, normocephalic. Pupils equal, round. Sclera anicteric. Conjunctiva are clear. Mucous membranes of the mouth are moist. Neck is supple. There is no elevated jugular venous pressure.] bruit is heard. HEART EXAMINATION: Heart S1, S2 normal. No murmur or gallop heard. CHEST EXAMINATION: Lungs are clear to auscultation and precussion. No chest wall tenderness is noted on palpation or with deep breathing. ABDOMEN: Soft, nontender. Bowel sounds are heard. No organomegaly noted. EXTREMITIES: 2+ peripheral pulses with no evidence of peripheral edema and no calf tenderness noted. NEUROLOGIC patient is awake, alert and oriented ?-3. - Labs CBC & Chem 7: 06/30/18 05:51 06/30/18 05:51 Labs: Abnormal Lab Results - Last 24 Hours (Table) 06/30/18 06/30/18 Range/Units 05:51 05:51 Plt Count 131 L (150-450) k/uL Total Protein 5.8 L (6.3-8.2) g/dL Albumin 3.1 L (3.5-5.0) g/dL Assessment and Plan Plan: Assessment and plan #1 chest discomfort, with some atypical features for acute coronary syndrome. Troponins are negative 3. EKG shows a normal sinus rhythm with a left bundle- branch block pattern that appears to be new and prior EKGs which were reviewed. CTA of the chest negative for pulmonary embolism, it does show evidence of a 4 cm aortic aneurysm #2 cardiac risk factors negative for hypertension, no diabetes, mild hyperlipidemia per the patient, nonsmoker. #3 environmental ALLERGIES Plan Mirna scan stress test negative today for any reversible ischemia. From cardiology's perspective, he may be able to be discharged home. Follow-up appointment will be made in the office post discharge. DNP note has been reviewed, I agree with a documented findings and plan of care. Patient was seen and examined.
[2018-06-30] MEDS: TAMSULOSIN 0.4 MG CAP.ER.24H PO SCH (12:24)
[2018-06-30] MEDS: CHOLECALCIFEROL 1,000 UNIT TAB PO SCH (12:24)
--- NOTE | 2018-06-30 12:55 | P.DS ---
Providers Date of admission: 06/28/18 01:11 Expected date of discharge: 06/30/18 Attending physician: Luisa Fletcher Consults: 06/28/18 01:11 Consult Physician Routine Consulting Provider: Maico Jenkins Consult Reason/Comments: chest pain Do you want consulting provider notified?: Yes Primary care physician: Margarito [facility] Course: Discharge diagnosis #1 episode of chest pain lasting several hours, patient describes severe pain that started behind his right shoulder blade and removed to the middle of the chest, associated with difficulty breathing, so far cardiac enzymes are negative computed tomography scan angiogram of the chest negative for pulmonary embolism, cardiology consultation was requested. Stress test completed showing nondiagnostic electrocardiographic stress testing and nuclear images will be reported separately. Lexiscan stress completed showing no scintigraphic evidence for reversible ischemia. 2-D echo completed showing EF between 55-60% . Discussed case with cardiology. Patient has been cleared for discharge from cardiology. #2 underlying history of hypertension well-controlled continue current medications #3 underlying history of hyperlipidemia #4 underlying history of benign prostatic hypertrophy resume Flomax #5 evidence of ascending aortic aneurysm on computed tomography scan angiogram of the chest measuring 4 cm Hosptial course Kevin Garcia is a 77-year-old male who presented to [facility] emergency room with a chief complaint of chest pain. Patient describes a severe pain that started behind his right shoulder blade and moved up to the middle of his chest, patient stated that he could not get comfortable , he denies any associated nausea vomiting or diaphoresis, there was some shortness of breath with his chest pain he felt he was unable to take a deep breath. His pain was worsening, and he decided to come to emergency room, he was evaluated in the emergency room EKG and cardiac enzymes were negative, d-dimer was elevated at 1.30 patient underwent a computed tomography scan angiogram of the chest which revealed evidence of ascending aortic aneurysm of 4 cm, there was no evidence of pulmonary embolism. He was admitted to telemetry floor for further evaluation and treatment cardiology consultation was requested. Patient states that 2 years ago he hasn't a stress test which was negative. Patient has known history of hypertension, hyperlipidemia, and family history of coronary artery disease. On 06/29/2018 patient is alert and oriented 3 in no apparent distress he denies any chest pain or shortness of breath at this time he had some chest pressure earlier this morning he was admitted to telemetry floor due to episode of chest pain, cardiac enzymes are negative, EKG reveals evidence of left bundle branch block which was present in 2017, echocardiogram reveals normal ejection fraction, with mild aortic stenosis. Plan at this time per cardiology is to continue monitoring and proceed with stress test in the morning. On 06/30/2018 patient has been cleared for discharge from cardiology perspective. Patient currently resting comfortably in bed. Denies chest pain or shortness of breath. Patient underwent Mirna stress test and was negative for any reversible ischemia. Patient to follow-up outpatient with cardiology and primary care doctor Dr. King for platelet count of 131. Repeat CBC ordered for 1 week I performed an examination of the patient and discussed their management with the Nurse Practitioner. I have reviewed the Nurse Practitioner's notes and agree with the documented findings and plan of care Patient Condition at Discharge: Stable Plan - Discharge Summary Discharge Rx Participant: No New Discharge Prescriptions: New Aspirin 81 mg PO DAILY #30 chew Continue Cholecalciferol [Vitamin D3] 2,000 unit PO DAILY Lecithin, Soy [Lecithin] 400 mg PO DAILY [place] 565 mg PO BID Tamsulosin [Flomax] 0.4 mg PO BID #60 cap.er.24h Discharge Medication List Cholecalciferol [Vitamin D3] 2,000 unit PO DAILY 01/27/16 [History] [place] 565 mg PO BID 01/27/16 [History] Lecithin, Soy [Lecithin] 400 mg PO DAILY 01/27/16 [History] Tamsulosin [Flomax] 0.4 mg PO BID #60 cap.er.24h 12/12/16 [Rx] Aspirin 81 mg PO DAILY #30 chew 06/30/18 [Rx] Follow up Appointment(s)/Referral(s): Margarito King MD [Primary Care Provider] - 1-2 days Afia Carlton MD [STAFF PHYSICIAN] - 1 Week Ambulatory/Diagnostic Orders: Complete Blood Count w/diff [LAB.AMB] Time Frame: 1 Week, Location: None Selected Discharge Disposition: HOME SELF-CARE
== END 2018-06-30 14:19 | disposition home or self-care (01) ==
LOC: EC 20:22 → 6SEL 06-28 01:11
PROVIDERS: ADMIT Internal Medicine; ATTEND Internal Medicine
DX: R07.89 Other chest pain (principal); I44.7 Left bundle-branch block, unspecified; I71.2 Thoracic aortic aneurysm, without rupture; I35.0 Nonrheumatic aortic (valve) stenosis; R91.8 Other nonspecific abnormal finding of lung field; J98.11 Atelectasis; R79.89 Other specified abnormal findings of blood chemistry; J30.2 Other seasonal allergic rhinitis; E78.5 Hyperlipidemia, unspecified; M19.90 Unspecified osteoarthritis, unspecified site; I95.9 Hypotension, unspecified; N40.0 Benign prostatic hyperplasia without lower urinary tract symptoms; Z85.828 Personal history of other malignant neoplasm of skin; Z79.899 Other long term (current) drug therapy; Z86.79 Personal history of other diseases of the circulatory system; Z90.49 Acquired absence of other specified parts of digestive tract; Z87.891 Personal history of nicotine dependence; Z80.9 Family history of malignant neoplasm, unspecified; Z82.49 Family history of ischemic heart disease and other diseases of the circulatory system
CPT/HCPCS: 36415; 71045; 71275; 78452; 80053; 80061; 82550; 82553; 83735; 84484; 85025; 85379; 85610; 85730; 93005; 93017; 93306; 96361; 96374; 96375; 99285

== ENCOUNTER → 2018-07-09 | Outpatient (CLI) | payer MEDICARE, BC ==
[2018-07-09 11:13] LABS: Basophils % (A) 1 %; Eosinophils # (A) 0.1 k/uL (0-0.7); Eosinophils % (A) 3 %; HCT 43.3 % (39.0-53.0); HGB 14.4 gm/dL (13.0-17.5); Lymphocytes # (A) 1.5 k/uL (1.0-4.8); Lymphocytes % (A) 29 %; MCH 30.3 pg (25.0-35.0); MCHC 33.2 g/dL (31.0-37.0); MCV 91.2 fL (80.0-100.0); Mean Platelet Volume 6.9; Monocytes # (A) 0.3 k/uL (0-1.0); Monocytes % (A) 6 %; Neutrophils # (A) 3.2 k/uL (1.3-7.7); Neutrophils % (A) 60 %; Platelet Count 180 k/uL (150-450); RBC 4.74 m/uL (4.30-5.90); RDW 13.9 % (11.5-15.5); WBC 5.3 k/uL (3.8-10.6)
== END | disposition home or self-care (01) ==
LOC: LABWHC1 09:41
PROVIDERS: ATTEND Nurse Practitioner
DX: R07.89 Other chest pain (principal); I44.7 Left bundle-branch block, unspecified; I71.2 Thoracic aortic aneurysm, without rupture
CPT/HCPCS: 36415; 85025

== ENCOUNTER → 2020-07-19 | Outpatient (CLI) | payer MEDICARE, BC ==
[2020-07-19 14:10] LABS: HCT 46.4 % (39.0-53.0); HGB 14.9 gm/dL (13.0-17.5); MCH 29.5 pg (25.0-35.0); MCHC 32.1 g/dL (31.0-37.0); Platelet Count 158 k/uL (150-450); RBC 5.04 m/uL (4.30-5.90); RDW 13.1 % (11.5-15.5); WBC 7.4 k/uL (3.8-10.6)
[2020-07-19 19:45] LABS: African American GFR (CKD) 94.5 (60.0-200.0); Albumin 4.3 g/dL (3.80-4.90); Albumin/Globulin Ratio 1.79 (1.60-3.17); Anion Gap 9.3 mmol/L (4.00-12.00); Calcium 9.5 mg/dL (8.7-10.3); Carbon Dioxide 27.7 mmol/L (21.6-31.8); Globulin 2.4 g/dL (1.6-3.3); Non-African American GFR(CKD) 81.5 (60.0-200.0); Potassium 4.9 mmol/L (3.5-5.5); Total Protein 6.7 g/dL (6.2-8.2)
[2020-07-19 19:51] LABS: PSA Annual Screen 6.3 ng/mL (0.0-4.0)
[2020-07-19 20:43] LABS: Erythrocyte Sedimentation Rate 8 mm/Hr (0-20)
== END | disposition home or self-care (01) ==
LOC: LABWHC1 11:19
PROVIDERS: ATTEND Internal Medicine
DX: E78.2 Mixed hyperlipidemia (principal); E55.9 Vitamin D deficiency, unspecified; R73.09 Other abnormal glucose; J30.9 Allergic rhinitis, unspecified; K21.9 Gastro-esophageal reflux disease without esophagitis; N41.9 Inflammatory disease of prostate, unspecified; Z12.5 Encounter for screening for malignant neoplasm of prostate
CPT/HCPCS: 80053; 85652; 84443; 85027; 36415; G0103

== ENCOUNTER → 2021-08-14 | Outpatient (CLI) | payer MEDICARE, BC ==
[2021-08-14 18:58] LABS: HCT 43.4 % (39.6-50.0); HGB 14.6 g/dL (13.0-17.0); MCHC 33.6 g/dL (32.0-37.0); MCV 92.1 fL (80.0-97.0); Mean Platelet Volume 11.1 fL (9.5-12.2); Platelet Count 140 X 10*3/uL (140-440); RBC 4.71 X 10*6/uL (4.40-5.60); RDW 13.4 % (11.5-14.5); WBC 6.35 X 10*3/uL (4.50-10.00)
[2021-08-14 21:26] LABS: Chol/HDL Ratio 3.83 Ratio; HDL Cholesterol 38.6 mg/dL (40.00-60.00); LDL Cholesterol,Calculated 84.8 mg/dL (0.0-131.0); VLDL Calculation 24.6 mg/dL (5.00-40.00)
[2021-08-15 07:48] LABS: African American GFR (CKD) 91.7 (60.0-200.0); Albumin 4.2 g/dL (3.8-4.9); Albumin/Globulin Ratio 1.67 (1.60-3.17); Anion Gap 11.3 mmol/L (4.00-12.00); BUN/Creat Ratio 20.5 Ratio (12.00-20.00); Blood Urea Nitrogen 18.8 mg/dL (9.0-27.0); Calcium 9.3 mg/dL (8.7-10.3); Carbon Dioxide 22.9 mmol/L (21.6-31.8); Globulin 2.5 g/dL (1.6-3.3); Non-African American GFR(CKD) 79.1 (60.0-200.0); Total Bilirubin 0.6 mg/dL (0.30-1.20); Total Protein 6.7 g/dL (6.2-8.2)
== END | disposition home or self-care (01) ==
LOC: LABWHC1 11:15
PROVIDERS: ATTEND Internal Medicine
DX: N40.0 Benign prostatic hyperplasia without lower urinary tract symptoms (principal); E78.5 Hyperlipidemia, unspecified
CPT/HCPCS: 36415; 80053; 80061; 84443; 85027

== ENCOUNTER → 2022-02-12 | Outpatient (CLI) | payer MEDICARE, BC ==
[2022-02-12 18:06] LABS: HCT 44.2 % (39.6-50.0); HGB 14.9 g/dL (13.0-17.0); MCH 30.8 pg (27.0-32.0); MCHC 33.7 g/dL (32.0-37.0); MCV 91.3 fL (80.0-97.0); Mean Platelet Volume 10.8 fL (9.5-12.2); NRBC Per 100 WBC 0 /100 WBCS (0.0-0.0); Platelet Count 147 X 10*3/uL (140-440); RBC 4.84 X 10*6/uL (4.40-5.60); RDW 13.4 % (11.5-14.5); WBC 5.79 X 10*3/uL (4.50-10.00)
[2022-02-12 21:06] LABS: ALT 9 U/L (10-49); AST 20 U/L (14-35); Albumin 4.1 g/dL (3.8-4.9); Albumin/Globulin Ratio 1.46 (1.60-3.17); Alkaline Phosphatase 88 U/L (41-126); Blood Urea Nitrogen 16.1 mg/dL (9.0-27.0); Calcium 9.4 mg/dL (8.7-10.3); Carbon Dioxide 18.3 mmol/L (20.0-27.5); Chloride 99 mmol/L (96-109); Globulin 2.8 g/dL (1.6-3.3); Glucose 96 mg/dL (70-110); Non-African American GFR(CKD) 70.8 (60.0-200.0); Potassium 4.4 mmol/L (3.5-5.5); Sodium 136 mmol/L (135-145); Total Protein 6.9 g/dL (6.2-8.2)
[2022-02-12 21:07] LABS: LDL Cholesterol,Calculated 91.2 mg/dL (0.0-131.0)
== END | disposition home or self-care (01) ==
LOC: LABWHC1 11:24
PROVIDERS: ATTEND Internal Medicine
DX: E78.5 Hyperlipidemia, unspecified (principal); E03.9 Hypothyroidism, unspecified; N40.1 Benign prostatic hyperplasia with lower urinary tract symptoms
CPT/HCPCS: 36415; 80053; 80061; 84443; 85027

== ENCOUNTER → 2024-10-26 | Outpatient (CLI) | payer MEDICARE, BC | END | disposition home or self-care (01) | LOC: LABWHC1 09:26 | PROVIDERS: ATTEND Urology | DX: R97.20 Elevated prostate specific antigen [PSA] (principal) | CPT/HCPCS: 36415; 84153 ==